=== PATIENT | female | born 1955 | race Caucasian/White ===

== ENCOUNTER 2023-10-13 06:51 | Day surgery (SDC) | payer MEDICARE, SELFPAY ==
[2023-10-09 14:07] VITALS: BMI 22.1
--- NOTE | 2023-10-09 14:48 | P.CONAN_ITS ---
Documented by User: Yanet Zavala NP 10/09/23 14:49 HPI - Anesthesia Eval Consult details Narrative: 68yo F for Colonoscopy PMFSH Past Medical History Medical History Migraines Nephrolithiasis OCD (obsessive compulsive disorder) Attention deficit disorder (ADD) Depression Eczema Surgical History Surgical History Hx of colonoscopy Hx of removal of cyst Hx of cataract extraction Social History Social History Patient Tobacco Use Status: Former Tobacco user Substance Use Frequency: Occasionally Are you DNR?: No Advance Directives: No Advance Directives Information Provided: No Nutrition Risks: No Nutritional Risk Meds Allergies Allergy/AdvReac Type Severity Reaction Status Date / Time animal dander [PET DANDER] Allergy Intermediate SNEEZING, Verified 10/13/23 07:11 SWELLING mold [MOLD] Allergy Intermediate SWELLING Verified 10/13/23 07:11 pollen extracts [POLLEN] Allergy Intermediate SWELLING Verified 10/13/23 07:11 sulfite [SULFITE] Allergy Intermediate HIVES Verified 10/13/23 07:11 Sulfa (Sulfonamide Allergy Unknown UNKNOWN Verified 10/13/23 07:11 Antibiotics) [SULFA (SULFONAMIDE ANTIBIOTICS)] DUST Allergy Intermediate SWELLING Uncoded 10/13/23 07:11 Home Medications ?Medication ?Instructions ?Recorded ?Confirmed ?Last Taken ?Type albuterol sulfate 90 mcg/actuation 1 inh inhalation QID PRN Shortness 10/09/23 10/09/23 Unknown History aerosol inhaler Of Breath Or Wheezing albuterol sulfate 90 mcg/actuation 1 inh inhalation QID PRN Shortness 10/09/23 10/09/23 10/13/23 History aerosol inhaler (Ventolin HFA) Of Breath Or Wheezing rlkxfus-kdcyqckumavdg-gbucbxds 250 2 tab PO Q4-6H PRN Headache 10/09/23 10/09/23 Unknown History mg-250 mg-65 mg tablet (Excedrin Migraine) bupropion HCl 150 mg tablet,12 hr 150 mg PO BID 10/09/23 10/09/23 Unknown History sustained-release cetirizine 10 mg tablet (Zyrtec) 10 mg PO DAILY 10/09/23 10/09/23 Unknown History fluvoxamine 100 mg tablet 100 mg PO BEDTIME 10/09/23 10/09/23 Unknown History levothyroxine 25 mcg tablet 25 mcg PO DAILY 10/09/23 10/09/23 10/13/23 History sumatriptan succinate 100 mg tablet 100 mg PO ONCE PRN Headache 10/09/23 10/09/23 Unknown History trazodone 150 mg tablet 150 mg PO BEDTIME 10/09/23 10/09/23 Unknown History triamcinolone acetonide 0.5 % 1 appl topical DAILY 10/09/23 10/09/23 Unknown History topical ointment Exam Height,Weight and Vital Signs: Height 5 ft 9 in Weight 68.039 kg Assessment and Plan Assessment Anesthesia Assessment: Chart Reviewed Documented by User: Radha Morris MD 10/13/23 07:49 [facility] Past Medical History Medical History Migraines Nephrolithiasis OCD (obsessive compulsive disorder) Attention deficit disorder (ADD) Depression Eczema Surgical History Surgical History Hx of colonoscopy Hx of removal of cyst Hx of cataract extraction History of Problems with Anesthesia: No Social History Social History Patient Tobacco Use Status: Former Tobacco user Substance Use Frequency: Occasionally Are you DNR?: No Advance Directives: No Advance Directives Information Provided: No Nutrition Risks: No Nutritional Risk Meds Allergies Allergy/AdvReac Type Severity Reaction Status Date / Time animal dander [PET DANDER] Allergy Intermediate SNEEZING, Verified 10/13/23 07:11 SWELLING mold [MOLD] Allergy Intermediate SWELLING Verified 10/13/23 07:11 pollen extracts [POLLEN] Allergy Intermediate SWELLING Verified 10/13/23 07:11 sulfite [SULFITE] Allergy Intermediate HIVES Verified 10/13/23 07:11 Sulfa (Sulfonamide Allergy Unknown UNKNOWN Verified 10/13/23 07:11 Antibiotics) [SULFA (SULFONAMIDE ANTIBIOTICS)] DUST Allergy Intermediate SWELLING Uncoded 10/13/23 07:11 Home Medications ?Medication ?Instructions ?Recorded ?Confirmed ?Last Taken ?Type albuterol sulfate 90 mcg/actuation 1 inh inhalation QID PRN Shortness 10/09/23 10/09/23 Unknown History aerosol inhaler Of Breath Or Wheezing albuterol sulfate 90 mcg/actuation 1 inh inhalation QID PRN Shortness 10/09/23 10/09/23 10/13/23 History aerosol inhaler (Ventolin HFA) Of Breath Or Wheezing pgzkwat-oiwgeouzoljwn-jmjlruti 250 2 tab PO Q4-6H PRN Headache 10/09/23 10/09/23 Unknown History mg-250 mg-65 mg tablet (Excedrin Migraine) bupropion HCl 150 mg tablet,12 hr 150 mg PO BID 10/09/23 10/09/23 Unknown History sustained-release cetirizine 10 mg tablet (Zyrtec) 10 mg PO DAILY 10/09/23 10/09/23 Unknown History fluvoxamine 100 mg tablet 100 mg PO BEDTIME 10/09/23 10/09/23 Unknown History levothyroxine 25 mcg tablet 25 mcg PO DAILY 10/09/23 10/09/23 10/13/23 History sumatriptan succinate 100 mg tablet 100 mg PO ONCE PRN Headache 10/09/23 10/09/23 Unknown History trazodone 150 mg tablet 150 mg PO BEDTIME 10/09/23 10/09/23 Unknown History triamcinolone acetonide 0.5 % 1 appl topical DAILY 10/09/23 10/09/23 Unknown History topical ointment Exam Airway Mallampati Class: II TM Dist: >3cm Neck ROM: Full Loose/Missing/Broken Teeth: No Heart: RRR Lungs: CTA Assessment and Plan Assessment Anesthesia Assessment: Anesthesia Plan Discussed Final Anesthetic Review History of Problems with Anesthesia: No NPO: Yes ASA Class: II Final Preanesthetic Review: Meds/Allgs Chart Reviewed, Consent Obtained/Reviewed and Anes Risks/Benef Reviewed Patient Risk: Low Procedure Risk: Low Anesthetic Plan Anesthetic Plan: MAC: Disposition: Standard PACU
[2023-10-13 07:08] VITALS: BMI 21.0
[2023-10-13] MEDS: Lactated Ringers 1,000 ML 100 ML IVCONT (07:14)
[2023-10-13 07:20] VITALS: BP 103/62; PULSE 81; RESP 18; TEMP 36.8; O2SAT 98
--- NOTE | 2023-10-13 08:08 | P.HPSUR_ITS ---
Pre-Procedural Eval Section A - 24 Hr Update-Section A only Date of Service: 10/13/23 Section B - Complete if H&P > 30 days Chief Complaint: Encounter for screening for malignant neoplasm of Details of Present Illness: see H&P no changes Relevant Family History (Specify if Yes): No Relevant Social History: None Present Medications: see Short Stay Collaborative assessment Medical History: No relevant PMH History of Previous Operations: No relevant previous surgery Allergies: Allergies Allergy/AdvReac Type Severity Reaction Status Date / Time animal dander [PET DANDER] Allergy Intermediate SNEEZING, Verified 10/13/23 07:11 SWELLING mold [MOLD] Allergy Intermediate SWELLING Verified 10/13/23 07:11 pollen extracts [POLLEN] Allergy Intermediate SWELLING Verified 10/13/23 07:11 sulfite [SULFITE] Allergy Intermediate HIVES Verified 10/13/23 07:11 Sulfa (Sulfonamide Allergy Unknown UNKNOWN Verified 10/13/23 07:11 Antibiotics) [SULFA (SULFONAMIDE ANTIBIOTICS)] DUST Allergy Intermediate SWELLING Uncoded 10/13/23 07:11 Review of Systems Sugical H&P ROS: Negative: Constitution, Cardiovascular, Respiratory, Neurological, Psychiatric, Hem-Onc, Allergic/Immunologic, Gastrointestinal, Genitourinary, Musculoskeletal, Integumentary, Endocrine and Eyes/Ears/Nose/Throat Exam Surgical H&P Exam: Normal: HEENT, Normal: Heart, Normal: Lungs, Normal: Extrem ities, Normal: Abdomen, Normal: Skin and Normal: Neurological Plan Diagnosis/Plan: Unchanged I have reviewed the history and physical and performed a pertinent physical examination on my patient. No changes have occurred unless specified. Time Spent With Patient Time: Total time managing care of this patient today ____ minutes.
[2023-10-13 08:47] VITALS: BP 91/49; PULSE 66; RESP 16; TEMP 36.1; O2SAT 99
[2023-10-13 09:02] VITALS: BP 110/59; PULSE 69; RESP 16; TEMP 36.1; O2SAT 96
--- NOTE | 2023-10-13 09:08 | OP_ITS ---
DATE OF SERVICE: 10/13/2023 SURGEON: Yasmany Ortega MD INDICATIONS: Colon cancer screening. PREOPERATIVE DIAGNOSIS: POSTOPERATIVE DIAGNOSIS: PROCEDURE PERFORMED: Colonoscopy to the terminal ileum with snare polypectomy. ESTIMATED BLOOD LOSS: COMPLICATIONS: ANESTHESIA: Monitored anesthesia care. ASSISTANTS: SPECIMENS: DESCRIPTION OF PROCEDURE: A history and physical was performed. The risks and benefits of the procedure were explained to the patient and informed consent was obtained. The patient was placed in the left lateral decubitus position. A digital rectal exam was performed and was found to be normal. The Olympus pediatric video colonoscope was introduced into the rectum and advanced to the cecum. The cecum was identified by transillumination, palpation, and identification of the ileocecal valve. Examination was performed and the scope was removed. She tolerated the procedure well and was returned to the recovery area in stable condition. FINDINGS: The terminal ileum was normal. The visualized colonic mucosa was normal. A total of 3 polyps were removed with a snare. These were located at the cecum, transverse colon, and 55 cm. The polyp at 55 measured approximately 15 mm and had a stalk. This was snared and recovered via suction and a single clip was placed across the stalk for hemostasis. There was no bleeding at the termination of the procedure. The other 2 polyps were less than 10 mm. Retroflexed examination showed internal hemorrhoids. IMPRESSION: Colon polyps. RECOMMENDATION: Follow up the biopsy results. MD SHANICE Andrade/SIMON / [id number]
== END 2023-10-13 09:49 | disposition home or self-care (01) ==
PROVIDERS: PCP Family Medicine; Visit Provider Internal Medicine Gastroenterology
PROC: 0DJD8ZZ Inspection of Lower Intestinal Tract, Via Natural or Artificial Opening Endoscopic (ICD-10-PCS; CPT 45378; principal; 2023-10-13 08:20)
DX: Z12.11 Encounter for screening for malignant neoplasm of colon (principal); D12.0 Benign neoplasm of cecum; D12.3 Benign neoplasm of transverse colon; D12.6 Benign neoplasm of colon, unspecified; K64.8 Other hemorrhoids; Z87.19 Personal history of other diseases of the digestive system
CPT/HCPCS: 45385; 88305; J2704

== ENCOUNTER 2025-03-31 06:02 | Emergency (ER) | payer MEDICARE, SELFPAY ==
--- OUTSIDE RECORDS SUMMARY | 2023-10-13 03:20 | XMS_ITS ---
Author Organization [facility] Address [address] [place] [address] Care Team Providers Care Color Adviser Name Role Phone DEACON SILVA Primary Care Provider Yasmany Samuels Jr Unavailable REASON FOR VISIT colon screening Encounters Encounter Location Date Provider Diagnosis [facility] [place] Outpatient [address], [place] [id number] 10/13/2023 Yasmany Ortega Jr Encounter for screening colonoscopy Z12.11 and Colon polyps K63.5 Assessments Encounter Date Diagnosis (ICD Code) Assessment Notes Treatment Notes Treatment Clinical Notes Section Notes 10/13/2023 Encounter for screening colonoscopy (ICD-10 - Z12.11) 10/13/2023 Colon polyps (ICD-10 - K63.5) Plan Of Treatment No Information Progress Notes * AKASH MONTELONGO MDOB: [birth year] (69 yo F)Acc No.[id number]:10/13/2023 COLON WITH MAC Patient: AKASH CANNON Provider: Phong Ortega MD :[id number] A ge:68 Y S ex:Female Date:10/13/2023 Address:[address] [place] [address] Pcp:DEACON SILVA Subjective: * Chief Complaints: * 1 . Colon screening. * Medical History: Objective: * Vitals: Assessment: * Assessment: 1. E ncounter for screening colonoscopy - Z12.11 (Primary) 2 . C olon polyps - K63.5 Plan: * Treatment: * Procedure Codes: 4 5385 LESION REMOVAL COLONOSCOPY, 0529F INTRVL 3+YRS PTS CLNSCP DOCD * * The named appointment provid er may or may not be the originator of this progress note, and it is not deemed complete until electronically signed by the appointment provider. Sign off status: Pending * Provider: Phong Ortega MD Date: 0 10/13/2023 Generated for Vera douglas/Rachael/Tannaitting on: 1 05/31/2024 06:50 AM EST
--- OUTSIDE RECORDS SUMMARY | 2025-03-28 09:00 | XMS_ITS | Encounter Summary ---
Author Organization [facility] Address [address] [place] [address] Phone Care Team Providers Care Senior Vice President & General Counsel Name Role Phone Dayton Bruce DO Unavailable Dayton Bruce DO Primary Care Provider [phone] Dayton Bruce DO Unavailable Reason for Visit * Consultation (Within 2 weeks) - New Request Specialty Diagnoses / Procedures Referred By Kristofer vega Referred To Contact Psychiatry Diagnoses Current moderate episode of major depressive disorder without prior episode Dayton Bruce DO [address] [facility] [address] [place] [address] Phone: tel: fax: [email or web address] [facility] [address] [place] [address] Phone: tel: Referral ID Status Reason Start Date Expiration Date V isits Requested Visits Authorized [id number] New Request 02/03/2025 02/03/2026 1 1 Encounter Details Date Type Department Care Team (Late st Contact Info) Description 03/28/2025 9:00 AM EST Telemedicine [facility] [address] [place] [address] Mary Zapata, PMHNP- [address] [facility] [facility], [address] [place] [address] [email or web address] Mood disorder (Primary Dx); Obsessive-compulsive disorder, unspecified type; Grief reaction; Depression, unspecified depression type; Insomnia, unspecified type Social History Tobacco Use Types Packs/Day Years Used Date Smoking Tobacco: Never Smokeless Tobacco: Never Alcohol Use Standard Drinks/Week Comments Never 0 (1 standard drink = 0.6 oz pur e alcohol) Child or Family Care Answer Date Record ed Do you have problems with on e of the following making it difficult for you to work, study, or receive health care? No 01/27/2024 Education Answer Date Recorded Are you interested in more education? Not on hola e 09/18/2022 Are you concerned about learning? Not on file 09/18/2022 No 09/18/2022 No 09/18/2022 Food Answer Date Recorded Within the past 6 months we worried whether our food would run out before we got money to buy more. Never True 01/27/2024 Within the past 6 months the food we bought just didn't last and we didn't have enough money to get more. Never True Residential Stability Answer Date Recor ded What is your housing situation today? I have caroline sing 01/27/2024 How many times have you move d in the past 12 months? Zero (I did not move) 01/27/2024 Paying for Meds Answer Date Recorded Do you have trouble paying for medicines? No 01/27/2024 Paying Utility Bills Answer Date Record ed Do you have trouble paying your heating or elect ricity bill? No 01/27/2024 Transportation Answer Date Recorded Has the lack of transportati on kept you from medical appointments or from getting medications? No 01/27/2024 Digital Access Answer Date Recorded No 01/27/2024 Yes 01/27/2024 Do you have reliable internet access at home? Ye s 01/27/2024 Do you have a device (e.g., phone, tablet, computer) with a working camera? Yes 01/27/2024 Intimate Partner Violence Answer Date R ecorded Are you denied basic needs s uch as food, clothing, or medical care? No 03/28/2025 In the past 12 months have y ou been in a relationship with a person who hurts, threatens, or tries to control you? No 03/28/2025 Are you denied basic needs s uch as food, clothing, or medical care? No 03/28/2025 In the past 12 months have y ou been in a relationship with a person who hurts, threatens, or tries to control you? 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 Not on file Not on file Not on file documented as of this encounter Progress Notes * Mary Zapata, PMHNP-BC - 03/28/2025 9:00 AM EST Consultation Identifying information Petra is a 69 year old female referred by their PCP for psychiatric consultation. The patient was seen via telemedicine by video. The patient is aware that at the conclusion of the consultation their PCP will monitor and manage psychotropic medications. Reason for Referral The patient was referred due to worsening depression, recent severe grief, and a complex medicationhistory. PCP notes from 02/03/25 indicated the patient was struggling with depression, missing her recently sister, and dealing with financial debt. History of present illness The patient reports feeling depressed daily (PHQ-9=14), wishing she were better, and exhibiting lowenergy, hypersomnia (sleeping too much, staying in bed unless required for work), and feelings of failure for not forcing herself to get up. This worsening depression followed one week, about a monthago, when she experienced an abrupt shift, reporting feeling very energetic, staying up all night, engaging in obsessive cleaning, and experiencing racing thoughts and a sense of hope, which she self-treated with Trazodone to ensure sleep. She adamantly denies suicidal, homicidal, or self-harm ideation. She is currently struggling with acute grief following the of her close middle sister (September 2024) and ongoing estrangement from the rest of her family, which are major current stressors. Past Psychiatric History Petra has an extensive psychiatric history, beginning in adolescence, marked by both Depression and Obsessive-Compulsive Disorder (OCD). Her OCD symptoms, which began in her early teens, initially involved compulsive counting (by twos to twenty, interfering with reading and academics) and later included severe intrusive, unwanted thoughts (harm-related and inappropriate sexual content). She received behavioral therapy in her thirties, which she found helpful, and her OCD is described as primarily cognitive, with persistent unwanted thoughts and mental rituals, though the severity has fluctuated over time and remains chronic. She has a long history of recurrent mood swings dating back to her teenage years, with alternating periods of elevated mood/energy and depression. She describes a pronounced elevated episode following her mother's in 2011 (lasting about a year), characterized by elevated mood, increased energy, decreased need for sleep (staying up for days at a time/over 48 hours), increased talkativeness, impulsivity, irritability, risk-taking behaviors, grandiosity (feeling she had risen to a higher plain ), racing thoughts, and inflated self-esteem. This episode resulted in an outburst and her beingfired from work. A similar, less intense period occurred around age 48 (increased energy, socialization, confidence, productivity). These highs have become less frequent and the depressive lows more prominent as she has aged. This history led one past psychiatrist to label her presentation as being on the bipolar spectrum. She has a history of multiple past medication trials for depression and OCD, with generally minimalor partial benefit. Medications tried include Prozac (ineffective), Zoloft (discontinued due to fatigue), Wellbutrin (partial benefit), Effexor (ineffective, though it may have taken the edge off ), Cymbalta (ineffective), amitriptyline (minimal benefit), and anafranil (helpful for OCD). She expresses frustration with previous care due to a lack of significant improvement on multiple prescribed medications. The patient reports significant emotional trauma related to her mother's severe mental illness, which included mood swings (depressive lows and manic highs with excessive spending and extreme talking/yelling at unseen individuals), emotional dependence, being encouraged to skip school, and feeling forced into a go- between role for her parents. She also reports distress from unhealthy and impulsive relationships in adolescence and young adulthood (affair with a teacher, fixation on an older man), contributing to periods of depression and low self-esteem. She reports a long history of Major Depression, Insomnia, and Chronic Fatigue. She denies any history of hospitalization, suicide attempts, self-harm behaviors, psychosis, or eating disorders. Current psychotropic medications - Bupropion SR 150 mg BID, Trazodone 150 mg at bedtime, and Fluvoxamine 150 mg at bedtime (increased 4 months ago). She reports her meds have worked minimally. Family Psychiatric history Family history is highly significant: Mother had depression and severe mood swings (gavin with excessive spending) and experienced hallucinations on Paxil. A maternal uncle and his son both by suicide. An older sister has a history of anorexia and depression. Her father and other sister have ahistory of alcohol abuse. Substance history Petra reports a history of Alcohol Use Disorder, starting in her 30s. She achieved sobriety through AA, relapsed briefly around 2011, and became sober again after intensive outpatient treatment (IOP), reporting abstinence since about 2011. She reports intermittent marijuana use (less than once a week) and drinks one cup of coffee in the morning. She denies use of tobacco or illicit drugs. Patient Active Problem List Diagnosis Allergic rhinitis Depression Eczema Acquired hypothyroidism Mild intermittent asthma, uncomplicated Malaise and fatigue Overweight Allergic reaction to food Special screening for malignant neoplasm of colon Other fatigue Routine medical exam Sleep disturbance Diarrhea Osteopenia Advice given about COVID-19 virus infection Laboratory examination ordered as part of a routine general medical examination Migraine without aura and without status migrainosus, not intractable Current episode of major depressive disorder without prior episode Need for hepatitis C screening test Angioedema Screening for condition Need for prophylactic vaccination and inoculation against influenza Accidental fall Acute left-sided thoracic back pain Hives Close exposure to COVID-19 virus Need for prophylactic vaccination against Streptococcus pneumoniae (pneumococcus) Medicare annual wellness visit, subsequent Current moderate episode of major depressive disorder without prior episode Moderate persistent asthma with exacerbation Cervical radiculopathy Age-related cataract of both eyes Preop examination Encounter for routine laboratory testing Chronic pain of both ankles Psychophysiological insomnia Encounter for completion of form with patient Seasonal allergies Vitamin D deficiency, unspecified Social history Petra is a single, semi-retired woman living alone in [place], [place]. She holds a Bachelor's degree in [employer]. She currently works about 18 hours a week, with half of her work done virtually from home, for a [employer] organization. 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 I am tired of it and I am going to retire next year. She denies any legal history. Petra has recently experienced a significant loss, with her middle sister passing away on October 21, 2024; they had a very close relationship. She has one older sister, but they are estranged and not close. Petra describes her niece, who lives in [place], as probably the most important person in my life. She notes that while they don't really keep in contact, she knows her niece is there if she needs her. Petra has no children. Her current support system includes her neighbors, whom she refers to as her best friends, Yash and Ila, and another good local friend. She also maintains contact with a best friend who moved to [place]. Regarding mental health, she states, I was in therapy for 10 years and I don't think I need therapy. I had so many years of that and basically I think I need to review my meds, noting she has been on medication since her early 30's. Mental status examination Appearance: Normal Speech: clear, normally paced, and normal volume Cognition: intact with good understanding of issues discussed. Mood and affect: Mood very depressed , affect full and stable and congruent with content of speech No SI/HI No psychotic thought content, thought form, or hallucinations. Insight and judgment Intact Current Outpatient Medications Medication Sig Dispense Refill Last Dispense albuterol 2.5 mg /3 mL (0.083 %) nebulizer solution Take 3 mL (2.5 mg total) by nebulization every 6 (six) hours as needed. 30 mL 3 Unknown (outside pharmacy) albuterol 90 mcg/actuation inhaler Inhale 2 puffs into the lungs every 6 (six) hours as needed for wheezing. 18 g 3 Unknown (outside pharmacy) apremilast (OTEZLA) 30 mg tablet Take 60 mg by mouth 2 (two) times a day. Unknown (patient-reported) buPROPion (WELLBUTRIN SR) 150 MG SR 12 hr tablet Take 1 tablet (150 mg total) by mouth 2 (two) times a day. 180 tablet 3 Unknown (outside pharmacy) clobetasol (TEMOVATE) 0.05 % ointment APPLY TO PSORIASIS ON FEET TWICE A DAY Unknown (patient-reported) EPINEPHrine (EPIPEN 2-ALEXA) 0.3 mg/0.3 mL auto-injector Inject 0.3 mL (0.3 mg total) into the muscleas needed for anaphylaxis. 2 each 1 Unknown (outside pharmacy) fluticasone propion-salmeteroL (ADVAIR DISKUS) 500-50 mcg/dose DISKUS Inhale 1 puff into the lungs 2 (two) times a day. 1 each 3 Unknown (outside pharmacy) fluvoxaMINE (LUVOX) 100 MG tablet Take 1.5 tablets (150 mg total) by mouth nightly at bedtime. 45 tablet 5 Unknown (outside pharmacy) levothyroxine (SYNTHROID,LEVOTHROID) 25 MCG tablet Take 1 tablet (25 mcg total) by mouth every morning. 90 tablet 3 Unknown (outside pharmacy) loratadine (CLARITIN) 10 mg tablet Take 1 tablet by mouth every morning. Unknown (patient-reported) predniSONE (DELTASONE) 20 MG tablet 2 tabs daily x 3 days, 1.5 tabs daily x 3 days, 1 tab daily x 3days, 0.5 tab daily x 3 days 15 tablet 0 Unknown (outside pharmacy) SUMAtriptan (IMITREX) 100 MG tablet Take 1 tablet (100 mg total) by mouth once as needed for migraine. Can repeat dose in 2 hours if needed. Do not exceed 2 doses in a 24 hour period. Max dose 200mg/day 10 tablet 2 Unknown (outside pharmacy) traZODone (DESYREL) 150 MG tablet TAKE 1 TABLET BY MOUTH NIGHTLY AT BEDTIME. 90 tablet 3 Unknown (outside pharmacy) triamcinolone acetonide 0.05 % Oint Unknown (patient-reported) No current facility-administered medications for this visit. Allergies - Sesame, Sulfites, and Bactrim [sulfamethoxazole-trimethoprim] Assessment Petra is a 69-year-old woman with a complex psychiatric history presenting with a current major depressive episode (PHQ-9=14) and recent brief, self-limited elevated mood/energy consistent with hypomania. Her long-standing history includes multiple sustained periods of elevated mood, energy, grandiosity, and impulsivity, sometimes with functional impairment, strongly suggesting an underlying Bipolar Disorder Type I or II. This diagnosis is supported by the highly significant family history of mood swings and suicide. Her severe, chronic Obsessive-Compulsive Disorder (OCD), characterized by intrusive thoughts and mental counting rituals, is a primary concern. She has a history of Alcohol Use Disorder in remission and is currently experiencing acute grief and financial stress. Her complaints of hypersomnia, chronic fatigue, and current medication regimen (Bupropion SR and high-dose Fluvoxamine, both increased recently) require careful evaluation, as antidepressants used without a mood s tabilizer in Bipolar Disorder can potentially induce gavin or rapid cycling, and may be contributing to mixed features. The complaint of hypersomnia warrants continued consideration of a sleep disorder. Plan Bipolar spectrum mood disorder with comorbid obsessive-compulsive disorder Bipolar spectrum mood disorder with episodes of hypomania and depression. Comorbid OCD with intrusive thoughts and compulsive counting. Family history of mood disorder. Previous treatment with SSRIs and Wellbutrin was ineffective. Current treatment with fluvoxamine for OCD. Recent hypomanic episodelasted about a week with increased energy and reduced sleep. Current depressive episode with low energy and lack of interest in activities. Potential benefit from mood stabilizing agents discussed. - Scheduled follow-up appointment to discuss medication adjustments and treatment plan. - Will consider mood stabilizing agents for bipolar spectrum disorder. - Continue fluvoxamine for OCD. - Encouraged obtaining a list of previous medications and their efficacy. Major depressive episode with grief reaction following loss of sister Major depressive episode exacerbated by grief following the loss of her sister in September. Symptoms include low energy, lack of interest in activities, and feelings of failure. Protective factors includeher niece and supportive friends. No suicidal ideation or self-harm history. Short-term therapy maybe beneficial for grief processing. - Will consider short-term therapy for grief processing. Insomnia associated with mood disorder Insomnia associated with mood disorder, characterized by excessive daytime sleep and difficulty maintaining a regular sleep schedule. Current use of trazodone 50 mg at night. Recent hypomanic episodeinvolved reduced sleep but increased energy. - Continue trazodone 50 mg at night. - Monitor sleep patterns and adjust treatment as needed. Referral for Sleep Study: Due to chronic fatigue and hypersomnia, formal evaluation for Sleep Apneais warranted and should be pursued via the PCP. -Patient was given the opportunity to ventilate and receive support about psychosocial stressors. -We agreed to follow up on March 30 2025 at 130 pm to complete initial evaluation -Patient is aware that should they have any questions or concerns prior to their next scheduled appointment that they can contact this office documented in this encounter Plan of Treatment Upcoming Encounters Date Type Department Care Team (Late st Contact Info) Description 11/28/2024 Procedure Pass [address] [address] 04/26/2025 12:00 PM EST Telemedicine [facility] [address] [place] [address] Mary Zapata, PMHNP- [address], [address] [place] [address] [email or web address] 07/13/2025 3:30 PM EST Appointment [address] [address] Dayton Bruce DO [address] [facility] [address] [place] [address] 07/28/2025 1:30 PM EST Office Visit [facility] [address] [place] [address] Dayton Bruce DO [address] [facility] [address] [place] [address] [email or web address] Scheduled Referrals Name Type Priority Associated Diagnoses Order Schedule Ambulatory referral to [facility] Outpatient Referral Routine Current moderate episode of major depressive disorder without prior episode Ordered: 02/03/2025 documented as of this encounter Visit Diagnoses Diagnosis Mood disorder- Primary Unspecified episodic mood disorder Obsessive-compulsive disorder, unspecified type Grief reaction Adjustment disorder with depressed mood Depression, unspecified depression type Insomnia, unspecified type documented in this encounter Additional Health Concerns Assessment Noted Time PHQ-9 Depression Total Score: 14 025 10:45 AM EST PHQ-2 Depression Total Score: 5 03/28/20 25 10:45 AM EST documented as of this encounter Care Teams Senior Vice President & General Counsel Relationship Specialty Start Date End Date Dayton Bruce DO [address] [facility] [facility] [address] [place] [address] [email or web address] PCP - General 05/28/17 Dayton Bruce DO [address] [facility] [address] [place] [address] [email or web address] Historical LMR Provider 03/11/17 Dayton Bruce DO [address] [facility] [address] [place] [address] [email or web address] Insurance Assigned Provider 08/29/23 documented as of this encounter Additional Source Comments The information contained in this document represents components of the legal health record. It is not the complete legal health record.[facility]
--- OUTSIDE RECORDS SUMMARY | 2025-03-30 13:30 | XMS_ITS | Encounter Summary ---
Author Organization [facility] Address [address] [place] [address] Phone Care Team Providers Care Space Operations Name Role Phone Dayton Bruce DO Unavailable Dayton Bruce Janice DO Primary Care Provider [phone] Dayton Bruce Janice DO Unavailable Encounter Details Date Type Department Care Team (Late st Contact Info) Description 03/30/2025 1:30 PM EST Telemedicine [facility] [address] [place] [address] Mary Zapata, [facility]- [address] [facility], [address] [place] [address] [email or web address] Bipolar I disorder in remission (Primary Dx); Grief reaction Social History Tobacco Use Types Packs/Day Years [...] your housing situation today? 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 Not on file Not on file Not on file documented as of this encounter Plan of Treatment Upcoming Encounters Date Type Department Care Team (Late st Contact Info) Description 11/28/2024 Procedure Pass [facility], [address] [address] 04/26/2025 12:00 PM EST Telemedicine [facility] [address] [place] [address] Mary Zapata, PMHNP-BC [address] [facility], [address] [place] [address] 07/13/2025 3:30 PM EST Appointment [facility], [facility] [address] [place] [address] Dayton Bruce, [address] [facility] [address] [place] [address] 07/28/2025 1:30 PM EST Office Visit [facility] [address] [place] [address] Dayton Bruce DO [address] [address] documented as of this encounter Visit Diagnoses Diagnosis Bipolar I disorder in remission- Primary Grief reaction Adjustment disorder with depressed mood documented in this encounter Additional Health Concerns Assessment Noted Time PHQ-9 Depression Total Score: 14 025 1:55 PM EST PHQ-2 Depression Total Score: 5 03/30/20 25 1:55 PM EST documented as of this encounter Care Teams Space Operations Relationship Specialty Start Date End Date Dayton Bruce DO [address] [address] PCP - General 05/28/17 Dayton Bruce DO [address] [address] Historical LMR Provider 03/11/17 Dayton Bruce DO [address] [address] [email or web address] Insurance Assigned Provider 08/29/23 documented as of this encounter Additional Source Comments The information contained in this document represents components of the legal health record. It is not the complete legal health record.[facility]
--- NOTE | ~2025-03-31 | CT_ITS ---
EXAMINATION: CT HEAD WITHOUT CONTRAST CLINICAL INFORMATION: Headache x3 weeks R/O mass effect, stroke, bleed COMPARISON: None available. TECHNIQUE: Contiguous axial imaging was performed from the skull base to vertex without intravenous administration of contrast. This CT examination was performed using dose optimization techniques as appropriate, variously including the following: *Automated exposure control *Adjustment of mA and/or kV according to patient size (this includes techniques or standardized protocols for targeted exams where dose is matched to indication/reason for exam; i.e. extremities or head) *Use of iterative reconstruction technique FINDINGS: There is no acute ischemic change. There is no intracranial hemorrhage. There is no mass-effect or midline shift. There is mild generalized atrophy. Basal cisterns and ventricles are within normal limits for age/cerebral volume. Orbits are symmetrical and unremarkable. There is a lesion in the superior medial right maxillary sinus measuring 17 x 11 x 19 mm (CC by transverse by AP). It has a thin peripheral shell calcification. There is no adjacent erosion or maxillary bony wall thickening. It does not occlude the infundibulum. There are no bony abnormalities. CT/CT head/brain wo IV con IMPRESSION: No acute intracranial abnormality. There is a circumscribed lesion with peripheral shell of calcification in the superior medial right maxillary sinus that could represent a pseudocyst, retention cyst, pseudocyst, or post-surgical ciliated cyst. Electronically signed by: Miguel Almodovar MD 03/31/2025 09:57 AM EST
[2025-03-31 06:12] VITALS: BP 141/78; PULSE 80; RESP 20; TEMP 36.7; O2SAT 98; BMI 29.3
[2025-03-31 06:18] VITALS: BP 141/78; PULSE 80; RESP 20; TEMP 36.7; O2SAT 98
--- OUTSIDE RECORDS SUMMARY | 2025-03-31 06:50 | XMS_ITS | Encounter Summary ---
Author Organization [facility] Address [address] [facility] [address] [place] [address] Phone Care Team Providers Care Surg Rn Name Role Phone Dayton Bruce DO Unavailable Dayton Bruce DO Primary Care Provider [phone] Dayton Bruce DO Unavailable Encounter Details Date Type Department Care Team (Late Contact Info) Description 11/10/2022 Procedure Pass [facility], [facility] 30 [place] [address] Social History Tobacco Use Types Packs/Day Years Used Date Smoking Tobacco: Never Smokeless Tobacco: Never Alcohol Use Standard Drinks/Week Comments Never 0 (1 standard drink = 0.6 oz pur e alcohol) Education Answer Date Recorded Are you interested in more education? Not on hola e 09/18/2022 Are you concerned about learning? Not on file 09/18/2022 No 09/18/2022 No 09/18/2022 Digital Access Answer Date Recorded No 10/14/2022 No 10/14/2022 Reliable internet access at home? Not on file 10/14/2022 Device with a working camera? 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 file Not on file Not on file documented as of this encounter Plan of Treatment Upcoming Encounters Date Type Department Care Team (Late Contact Info) Description 11/28/2024 Procedure Pass [facility] 30 [place] [address] 04/26/2025 12:00 PM EST Telemedicine [facility] 22 [place] [address] Mary Zapata, PMHNP-BC [address] [facility], [address] [place] [address] 07/13/2025 3:30 PM EST Appointment [address] [address] Dayton Bruce DO [address] [address] 07/28/2025 1:30 PM EST Office Visit [facility] 234 [place] [address] Dayton Bruce DO [address] [address] documented as of this encounter Visit Diagnoses Not on filedocumented in this encounter Additional Health Concerns Assessment Noted Time PHQ-9 Depression Total Score: 8 07/25/19 22 11:30 AM EST PHQ-2 Depression Total Score: 2 11/11/19 23 1:58 PM EDT documented as of this encounter Care Teams Surg Rn Relationship Specialty Start Date End Date Dayton Bruce DO 234 [facility] 7 [place] [address] PCP - General 05/28/17 Dayton Bruce DO [address] [place] [address] 7 [place] [address] Historical LMR Provider 03/11/17 Dayton Bruce DO [address] [place] [address], [address] [place] [address] [email or web address] Insurance Assigned Provider 08/29/23 documented as of this encounter Additional Source Comments The information contained in this document represents components of the legal health record. It is not the complete legal health record.[facility]
--- OUTSIDE RECORDS SUMMARY | 2025-03-31 06:50 | XMS_ITS | Encounter Summary ---
Author Organization [facility] Address [address] [place] [address] Phone Care Team Providers Care Pharmacy Graduate Intern Name Role Phone Lilian Pina DIRECTOR OF INFECTION CONTROL Unavailable [phone] SahDayton reid DO Unavailable Ernestine Beasley NP Unavailable [phone] Emily Narayanan MD Unavailable Caron Norman MD Unavailable SahDayton reid DO Primary Care Provider [phone] Dayton Bruce DO Unavailable Encounter Details Date Type Department Care Team (Late st Contact Info) Description 07/21/2019 Ancillary Orders [facility] 234 [place] [address] Dayton Bruce DO 234 [facility] 7 [place] [address] 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 30 [place] [address] 04/26/2025 12:00 PM EST Telemedicine [facility] 22 [place] [address] Mary Zapata, PMHNP-BC 22 [facility], [address] [place] [address] 07/13/2025 3:30 PM EST Appointment [address] [address] Dayton Bruce, DO 234 [facility], [address] [place] [address] 07/28/2025 1:30 PM EST Office Visit [address] [address] Dayton Bruce, DO 234 [facility], [address] [place] [address] [email or web address] documented as of this encounter Results * BI MAMMOGRAM SCREENING WITH TOMOSYNTHESIS WITH CAD (BILATERAL) (03/26/2020 1:09 PM EST) Anatomical Region Laterality Modality Breast Left, Breast Right, Breast Bilateral Bila teral Mammography 03/26/2020 1:09 PM EST Impressions 03/26/2020 1:22 PM EST No mammographic signs of malignancy. Annual screening is recommended. BI-RADS CATEGORY 1 - NEGATIVE DENSITY: The breast tissue is almost entirely fatty Narrative 03/26/2020 1:22 PM EST Bilateral mammography is performed in conjunction with computed aided detection. 3-D tomography along with 2-D C view imaging was also performed. Comparison made to previous dated as far back as 08/15/2013 and as recent as 11/30/2017. No suspicious masses, areas of architectural distortion or suspicious microcalcifications. Dayton Camacho Josefranklin DO IMG MG EXAMS Final Result documented in this encounter Visit Diagnoses Diagnosis Breast screening Breast screening, unspecified Breast screening Breast screening, unspecified documented in this encounter Additional Health Concerns Infection Onset Date Last Indicated Resolved Time CoV-Exposed Comment:Recent close contact documented in the COVID-19 PCR/PRO order 06/06/2021 06/07/2021 06/17/2021 1:[address] documented as of this encounter Care Teams Pharmacy Graduate Intern Relationship Specialty Start Date End Date Dayton Bruce DO [address] [place] [address] 7 [place] [address] PCP - General 05/28/17 Lilian Pina NP 1 [place] [address] Historical LMR Provider 03/11/17 2 Dayton Bruce DO [address] [place] [address] 7 [place] [address] [email or web address] Historical LMR Provider 03/11/17 Ernestine Beasley NP [address] [place] [address] Historical LMR Provider 03/11/17 2 Emily Narayanan MD [address] [place] [address] Historical LMR Provider 03/11/17 06/01/21 Caron Norman MD [address] [place] [address] 7 [place] [address] Historical LMR Provider 03/11/17 06/01/21 Dayton Bruce DO [address] [place] [address], [address] [place] [address] [email or web address] Insurance Assigned Provider 08/29/23 documented as of this encounter Additional Source Comments The information contained in this document represents components of the legal health record. It is not the complete legal health record.[facility]
--- OUTSIDE RECORDS SUMMARY | 2025-03-31 06:50 | XMS_ITS | Encounter Summary ---
Author Organization [facility] Address [address] [facility] [address] [place] [address] Phone Care Team Providers Care Medical Insurance Coder Name Role Phone Lilian Pina ORDER TAKERS SUPERVISOR Unavailable SahdDayton DO Unavailable Ernestine Beasley NP Unavailable Emily Narayanan MD Unavailable Caron Norman MD Unavailable [phone] SahDayton reid DO Primary Care Provider [phone] SahDayton reid DO Unavailable SahDayton reid DO Unavailable Encounter Details Date Type Department Care Team (Late st Contact Info) Description 10/22/2017 Ancillary Orders [facility] 234 [place] [address] Dayton Bruce DO 234 [facility] [address] [place] [address] [email or web address] Breast screening Social History Tobacco Use Types Packs/Day Years Used Date Smoking Tobacco: Never Smokeless Tobacco: Never Comments Unknown Sex and Gender Information Value Date Recorded Sex Assigned at Not on file Legal Sex Female 7:02 PM EST Gender Identity Not on file Sexual Orientation Not on file documented as of this encounter Plan of Treatment Upcoming Encounters Date Type Department Care Team (Late st Contact Info) Description 11/28/2024 Procedure Pass [facility] 30 [place] [address] 04/26/2025 12:00 PM EST Telemedicine [facility] 22 [place] [address] Benny Mary Whitehead, PMHNP-BC [address] [facility], [address] [place] [address] 07/13/2025 3:30 PM EST Appointment [facility] 30 [place] [address] Dayton Bruce, DO 234 [facility], [address] [place] [address] 07/28/2025 1:30 PM EST Office Visit [address] [address] Dayton Bruce, DO 234 [facility] 7 [place] [address] documented as of this encounter Results * BI MAMMOGRAM SCREENING WITH TOMOSYNTHESIS WITH CAD (BILATERAL) (11/30/2017 12:53 PM EDT) Anatomical Region Laterality Modality Breast Left, Breast Right, Breast Bilateral Bila teral Mammography 11/30/2017 1:00 PM EDT Impressions 11/30/2017 1:06 PM EDT Stable appearance relative to prior imaging. No findings suggestive of malignancy are seen. BI-RADS CATEGORY: 1 - Negative. DENSITY: The breast tissue is almost entirely fat. POS - [id number] Narrative 11/30/2017 1:06 PM EDT Full-field digital mammography is obtained with computer-aided detection. Comparison with prior imaging from08/19/2016 is made with older imaging dating back as far as01/02/2010 also reviewed. There is fatty fibroglandular density evident in the breasts. In addition to 2-D C view imaging, tomosynthesis images are obtained in two projections of each breast. No dominant soft tissue mass of concern, suspicious cluster of calcifications, significant interval skin changes, or architectural distortion is identified. Procedure Note Otf Caro MD - 11/30/2017 Full-field digital mammography is obtained with computer-aided detection.Comparison with prior imaging from08/19/2016 is made with older imagingdating back as far as01/02/2010 also reviewed. There is fatty fibroglandular density evident in the breasts. In additionto 2-D C view imaging, tomosynthesis images are obtained in twoprojections of each breast. No dominant soft tissue mass of concern, suspicious cluster ofcalcifications, significant interval skin changes, or architecturaldistortion is identified. IMPRESSION: Stable appearance relative to prior imaging. No findings suggestive ofmalignancy are seen. BI-RADS CATEGORY: 1 - Negative. DENSITY: The breast tissue is almost entirely fat. POS - [id number] Dayton Bruce DO IMG MG EXAMS Final Result documented in this encounter Visit Diagnoses Diagnosis Breast screening Breast screening, unspecified Breast screening Breast screening, unspecified documented in this encounter Additional Health Concerns Infection Onset Date Last Indicated Resolved Time CoV-Exposed Comment:Recent close contact documented in the COVID-19 PCR/PRO order 06/06/2021 06/07/2021 06/17/2021 1:[address] documented as of this encounter Care Teams Medical Insurance Coder Relationship Specialty Start Date End Date Dayton Bruce DO [address] [place] [address], [address] [place] [address] PCP - General 05/28/17 Lilian Pina NP [address] [place] [address] Historical LMR Provider 03/11/17 2 Dayton Bruce DO [address] [place] [address] 7 [place] [address] [email or web address] Historical LMR Provider 03/11/17 Ernestine Beasley NP 29 [place] [address] Historical LMR Provider 03/11/17 2 Emily Narayanan MD [address] [address] [email or web address] Historical LMR Provider 03/11/17 06/01/21 Caron Norman MD [address] [place] [address] 7 [place] [address] [email or web address] Historical LMR Provider 03/11/17 06/01/21 Dayton Bruce DO [address] [place] [address] 7 [place] [address] [email or web address] Insurance Assigned Provider 07/18/1704/25 Dayton Bruce DO [address] [place] [address] [place] [address] Insurance Assigned Provider 08/29/23 documented as of this encounter Additional Source Comments The information contained in this document represents components of the legal health record. It is not the complete legal health record.[facility]
--- OUTSIDE RECORDS SUMMARY | 2025-03-31 06:50 | XMS_ITS | Encounter Summary ---
Author Organization [facility] Address [address] [facility] [address] [place] [address] Phone Care Team Providers Care Switchboard Operator Helper Name Role Phone Lilian Pina CARE MANAGER Unavailable SahDayton reid DO Unavailable Ernestine Beasley NP Unavailable Emily Narayanan MD Unavailable Caron Norman MD Unavailable SahDayton reid DO Primary Care Provider Dayton Bruce DO Unavailable Encounter Details Date Type Department Care Team (Late st Contact Info) Description 02/25/[address] [address] Social History Tobacco Use Types Packs/Day Years Used Date Smoking Tobacco: Never Smokeless Tobacco: Never Comments No Sex and Gender Information Value Date Recorded Sex Assigned at Not on file Legal Sex Female 7:02 PM EST Gender Identity Not on file Sexual Orientation Not on file 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 Not on file Not on file documented as of this encounter Plan of Treatment Upcoming Encounters Date Type Department Care Team (Late Contact Info) Description 11/28/[address] [address] 04/26/2025 12:00 PM EST Telemedicine [facility] [address] [place] [address] Mary Zapata, PMHNP- 22 [facility], [address] [place] [address] 07/13/2025 3:30 PM EST Appointment [facility], [facility] 30 [place] [address] Dayton Bruce DO [address] [address] 07/28/2025 1:30 PM EST Office Visit [facility] 234 [place] [address] Dayton Bruce DO [address] [address] documented as of this encounter Visit Diagnoses Not on filedocumented in this encounter Additional Health Concerns Infection Onset Date Last Indicated Resolved Time CoV-Exposed Comment:Recent close contact documented in the COVID-19 PCR/PRO order 06/06/2021 06/07/2021 06/17/2021 1:[address] documented as of this encounter Care Teams Switchboard Operator Helper Relationship Specialty Start Date End Date Dayton Bruce DO [address] [place] [address] PCP - General 05/28/17 Lilian Pina NP 1 [facility] [place] [address] Historical LMR Provider 03/11/17 1/ 2 Dayton Bruce DO [address] [place] [address] Historical LMR Provider 03/11/17 Ernestine Beasley NP [address] [place] [address] Historical LMR Provider 03/11/17 2 Emily Narayanan MD [address] [place] [address] Historical LMR Provider 03/11/17 06/01/21 Caron Norman MD [address] [place] [address] 7 [place] [address] [email or web address] Historical LMR Provider 03/11/17 06/01/21 Dayton Bruce DO [address] [place] [address] 7 [place] [address] [email or web address] Insurance Assigned Provider 08/29/23 documented as of this encounter Additional Source Comments The information contained in this document represents components of the legal health record. It is not the complete legal health record.[facility]
--- OUTSIDE RECORDS SUMMARY | 2025-03-31 06:50 | XMS_ITS | Encounter Summary ---
Author Organization [facility] Address [address] [facility] [address] [place] [address] Phone Care Team Providers Care Business Solutions Analyst Name Role Phone Dayton Bruce DO Unavailable Dayton Bruce Janice DO Primary Care Provider [phone] Dayton Bruce Janice DO Unavailable Reason for Visit * Reason Onset Date Comments Appointment 03/22/2025 Encounter Details Date Type Department Care Team (Late st Contact Info) Description 03/22/2025 Telephone [facility] 22 [place] [address] Mary Zapata, [facility] 22 [facility], [address] [place] [address] [email or web address] Appointment Social History Tobacco Use Types Packs/Day Years [...] Intimate Partner Violence Answer Date R ecorded Denied Basic Needs Not on file 02/01/2025 In the past 12 months have y ou been in a relationship with a person who hurts, threatens, or tries to control you? No 02/01/2025 Worried food would run out Not on file 02/01 In the past 12 months have y ou been in a relationship with a person who hurts, threatens, or tries to control you? 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 States that she has an appt with Mary in [place], but is considering scheduling with a md. Requesting call back for cesar. [facility] Call Center CSS Agent (Please do not reply to this user, as this inbox is not monitored. Thank you.) Thank you. documented in this encounter Plan of Treatment Upcoming Encounters Date Type Department Care Team (Late st Contact Info) Description 11/28/2024 Procedure Pass [address] [address] 04/26/2025 12:00 PM EST Telemedicine [facility] 22 [place] [address] Mary Zapata, HNP- [address] [address] 07/13/2025 3:30 PM EST Appointment [address] [address] Dayton Bruce DO [address] [address] 07/28/2025 1:30 PM EST Office Visit [facility] [address] [place] [address] Dayton Bruce DO [address] [place] [address] documented as of this encounter Visit Diagnoses Not on filedocumented in this encounter Additional Health Concerns Assessment Noted Time PHQ-9 Depression Total Score: 8 02/02/20 4:41 PM EDT PHQ-2 Depression Total Score: 3 02/02/20 4:41 PM EDT documented as of this encounter Care Teams Business Solutions Analyst Relationship Specialty Start Date End Date Dayton Bruce DO [address] [address] [email or web address] PCP - General 05/28/17 Dayton Bruce DO 234 [facility] 7 [place] [address] [email or web address] Historical LMR Provider 03/11/17 Dayton Bruce DO 234 [facility] 7 [place] [address] [email or web address] Insurance Assigned Provider 08/29/23 documented as of this encounter Additional Source Comments The information contained in this document represents components of the legal health record. It is not the complete legal health record.[facility]
--- OUTSIDE RECORDS SUMMARY | 2025-03-31 06:50 | XMS_ITS | Clinical Summary ---
Author Organization Formerly [facility] Address [address] [address] Phone Care Team Providers Care Nipple 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 Name Role Phone Dayton Bruce DO Unavailable Dayton Bruce DO Primary Care Provider Dayton Bruec DO Unavailable Allergies Active Allergy Reactions Criticality Noted Date Comments Sulfamethoxazole-Trim ethoprim Other (See Comments) 06/17/2023 Does not recall, told her never to take again Sesame Anaphylaxis,Hives High 03/04/2021 Sulfites Anaphylaxis,Hives High 03/04/2021 Medications apremilast (OTEZLA) 30 mg tablet Take 60 mg by mouth 2 (two) times a day. Active EPINEPHrine (EPIPEN 2-ALEXA) 0.3 mg/0.3 mL auto-injectorIndi cations:Allergy, subsequent encounter Inject 0.3 mL (0.3 mg total) into the muscle as needed for anaphylaxis. 2 each 1 024 Active albuterol 2.5 mg /3 mL (0.083 %) nebulizer solutionIndicatio ns:Moderate persistent asthma with exacerbation Take 3 mL (2.5 mg total) by nebulization every 6 (six) hours as needed. 30 mL 3 024 Active triamcinolone acetonide 0.05 % Oint 023 Active albuterol 90 mcg/actuation inhalerIndication s:Moderate persistent asthma with exacerbation Inhale 2 puffs into the lungs every 6 (six) hours as needed for wheezing. 18 g 3 Active fluticasone propion-salmetero L (ADVAIR DISKUS) 500-50 mcg/dose DISKUSIndications :Moderate persistent asthma with exacerbation Inhale 1 puff into the lungs 2 (two) times a day. 1 each 3 Active traZODone (DESYREL) 150 MG tabletIndications :Psychophysiologi jose de jesus insomnia TAKE 1 TABLET BY MOUTH NIGHTLY AT BEDTIME. 90 tablet 3 Active fluvoxaMINE (LUVOX) 100 MG tabletIndications :Recurrent major depressive disorder, in partial remission Take 1.5 tablets (150 mg total) by mouth nightly at bedtime. 45 tablet 5 025 2024 Active predniSONE (DELTASONE) 20 MG tabletIndications :Eczema, unspecified type 2 tabs daily x 3 days, 1.5 tabs daily x 3 days, 1 tab daily x 3 days, 0.5 tab daily x 3 days 15 tablet 025 Active clobetasol (TEMOVATE) 0.05 % ointment APPLY TO PSORIASIS ON FEET TWICE A DAY Active SUMAtriptan (IMITREX) 100 MG tabletIndications :Migraine without aura and without status migrainosus, not intractable Take 1 tablet (100 mg total) by mouth once as needed for migraine. Can repeat dose in 2 hours if needed. Do not exceed 2 doses in a 24 hour period. Max dose 200mg/ day 10 tablet 2 Active levothyroxine (SYNTHROID,LEVOTH ROID) 25 MCG tabletIndications :Acquired hypothyroidism Take 1 tablet (25 mcg total) by mouth every morning. 90 tablet 3 025 Active loratadine (CLARITIN) 10 mg tabletIndications :Other seasonal allergic rhinitis TAKE 1 TABLET BY MOUTH EVERY DAY 90 tablet 3 025 Active lamoTRIgine (LAMICTAL) 25 MG IMMEDIATE release tablet Take one tablet by mouth at bedtime (25 mg) x 14 days, if no rash and tolerating well, increase to two tablets by mouth (50 mg) at bedtime. 60 tablet 025 Active loratadine (CLARITIN) 10 mg tablet Take 1 tablet by mouth every morning. 025 2024 Discontinued buPROPion (WELLBUTRIN SR) 150 MG SR 12 hr tabletIndications :Current moderate episode of major depressive disorder without prior episode Take 1 tablet (150 mg total) by mouth 2 (two) times a day. 180 tablet 3 025 2024 Discontinued Active Problems Problem Noted Date Diagnosed Date Vitamin D deficiency, unspecified 02/03/2025 Assessment & Plan (02/03/2025 1:48 PM EDT): Petra is due for vitamin D check-her last vitamin D level was low. I will update her with the result. Seasonal allergies 02/03/2024 Assessment & Plan (02/03/2024 2:16 PM EDT): Petra has seasonal allergies- I wrote for Claritin. Encounter for completion of form with patient Assessment & Plan (08/12/2023 2:25 PM EDT): I filled out paperwork for her-she had to cancel her trip last month secondary to pneumonia. She was appreciative that I took the time to do this. I we will scanned this form into her chart. Chronic pain of both ankles 02/11/2023 Assessment & Plan (02/11/2023 3:33 PM EDT): Petra has pain in her ankles bilaterally-I suspect arthritis and I want to confirm with x-rays thus I ordered this today. 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 She will call if there are any other issues or [id number]-ed in 6 months. She understands and agrees. Psychophysiological insomnia 02/11/2023 Assessment & Plan (02/11/2023 3:32 PM EDT): Petra has insomnia-I refilled her trazodone as her previous medication is out of date. She was appreciative. Age-related cataract of both eyes 11/10/2022 Assessment & Plan (11/10/2022 2:00 PM EDT): Petra presents for preop visit at the request of Dr. Gimenez for cataract surgery to her right eye on 11/26/2022 and the left eye will be done in december. I reviewed her medical records today and I cleared at a low cardiovascular risk for this procedure based on the visit in the office today. I will fax this out to Dr. Gimenez-along with the preop form. Please call if there are any questions or concerns. Preop examination 11/10/2022 Assessment & Plan (11/10/2022 2:01 PM EDT): Petra presents for preop visit at the request of Dr. Gimenez for cataract surgery to her right eye on 11/26/2022 and the left eye will be done in december. I cleared her at low cardiovascular risk today. Encounter for routine laboratory testing 023 Assessment & Plan (11/10/2022 2:01 PM EDT): Petra is due for lab work prior to her next physical in 3 months. I ordered these today and she will get this done. Cervical radiculopathy 10/15/2022 Assessment & Plan (10/15/2022 12:50 PM EDT): Petra presents for neck pains with pain rating down the arms-right side worse than left. I suspect that this is a cervical radiculopathy and I treated her with prednisone-to be taken in the morning and Flexeril-to be taken at night-side effects discussed with these medications. I wrote for some exercises to start on and I also wrote for physical therapy referral. I want her to get the x-ray done of the cervical spine I will update her with the results-rule out any bony abnormalities. If this does not improve she will call and let me know. Follow-up as needed. Current moderate episode of major depressive disorder without prior episode 09/09/2022 Assessment & Plan (02/03/2025 1:52 PM EDT): Petra has depression-I refilled her Wellbutrin today as she stopped this for couple weeks. I also referred her to psychiatry at [facility]-she will call if there are any other issues or concerns. She understands and agrees. I have maintained a long-term relationship with the patient, overseeing the care of their depression. This has significantly influenced my decision-making and treatment plans during today's encounter. Assessment & Plan (11/14/2024 2:01 PM EDT): Petra is more depressed recently secondary to the fact that her sister last month. She is taking her Wellbutrin as directed. I increased her luvox today-she will call if there is any side effects. Follow-up in January for CPE. She understands and agrees with this plan of action. I have maintained a long-term relationship with the patient, overseeing the care of their depression. This has significantly influenced my decision-making and treatment plans during today's encounter. Assessment & Plan (08/12/2023 2:25 PM EDT): Petra is taking her Wellbutrin-this is helping her depression. Follow-up in 3 months for her Medicare wellness. She understands and agrees. Assessment & Plan (09/09/2022 12:33 PM EDT): Stable on her [id number]-pl as needed. Moderate persistent asthma with exacerbation Assessment & Plan (11/14/2024 1:46 PM EDT): Stable while using her inhalers-she has refills at home. Assessment & Plan (02/03/2024 2:23 PM EDT): Petra has asthma- I gave guidance regarding her inhalers- to be used as directed. Assessment & Plan (12/02/2023 1:48 PM EDT): Petra presents for a follow-up regarding an asthma exacerbation. She is finishing up her prednisone and is using her inhaler and nebulizer as directed. Her symptoms have improved and I am pleased about this. I advised her to continue with the steroid-based inhaler. I reviewed her x-ray from last month-reassuring. I informed her to call if there are any other issues or concerns. She understands and agrees. Assessment & Plan (11/25/2023 9:33 AM EDT): I diagnosed Petra with a moderate asthma exacerbation-continued. I changed her maintenance inhaler to high-dose Advair and I sent this to her pharmacy today. She is to continue with her oral prednisone and to continue with her rescue inhaler as directed. I advised her to stay in the air air conditioning and to minimize her activity outside. I informed her to call if her symptoms get worse-she has an appoint with me next week already scheduled and I advised her to keep this appointment. Informed her to call if there are any other issues or concerns. She understands and agrees. Assessment & Plan (09/09/2022 12:33 PM EDT): Petra was diagnosed with a moderate persistent asthma exacerbation and I treated her appropriately with a azithromycin to take as directed, prednisone taper-this was discussed in the office on how to take as well as the possible side effects, as well as an Advair inhaler-to be taken as directed and to rinse her mouth out with a salt water rinse after each use to prevent thrush. I informed her to call if things get worse or if there are any other issues or concerns. She understands and agrees. Need for prophylactic vaccin ation against Streptococcus pneumoniae (pneumococcus) 07/24/2021 Assessment & Plan (07/24/2021 4:10 PM EST): Petra is due for a Pneumo 23 vaccine today she is in agreement with this-this was done in the office today without any complications. Medicare annual wellness visit, subsequent 07/24 Assessment & Plan (02/03/2025 1:50 PM EDT): Petra Montelongo is a 69 y.o. year old female presenting for her annual medicare wellness exam. I reviewed the adult health questionnaire -electronically filled out-today. she will go for her above lab work and I will update her with the results. I reviewed her diet and exercise regimen. she will follow up in a year for their annual medicare wellness exam. she understand and agrees. Assessment & Plan (07/24/2021 4:11 PM EST): Petra Montelongo is a 66 y.o. year old female presenting for her annual medicare wellness exam. I reviewed the adult health questionnaire today. I reviewed her most recent lab work in the office today-stable. she has a healthy diet and I advised her to improve her exercise regimen. she will follow up in a year for their annual medicare wellness exam. she understand and agrees. Hives 06/07/2021 Assessment & Plan (06/07/2021 2:44 PM EST): Petra has hives for which she is taking prednisone and I refilled this today. She will follow-up with her rocket motor mechanic as directed. I advised for lotion to the skin as well as taking Benadryl as needed. She will call if there is any other issues or concerns. She understands and agrees. Close exposure to COVID-19 virus 06/07/2021 Assessment & Plan (06/07/2021 2:44 PM EST): Petra had a close exposure to someone with COVID yesterday. She was swabbed today and I will update her with the results. She will call if she becomes symptomatic. I did advise her to repeat testing next week. She will call if there is any other issues or concerns. She understands and agrees. Accidental fall 05/02/2021 Assessment & Plan (05/02/2021 3:33 PM EST): Petra had an axonal fall a day after . She did not lose consciousness. I diagnosed her with a tight muscle in the lumbar/thoracic spine and I gave her Flexeril-to be taken as directed-guidance given. I gave her exercises as well and advised her to stay well-hydrated. She will call if there is any other issues or concerns. She understands and agrees. Acute left-sided thoracic back pain 05/02/2021 Assessment & Plan (05/02/2021 3:33 PM EST): Petra presents for left lower back pain status post a fall down steps after which has gotten worse since then. I do not believe she has a fracture but there is tight muscles noted thus I gave her some Flexeril-guidance given. I also gave her a printout of exercises to start on at home. She will call if there is any other issues or concerns. She understands and agrees. Need for hepatitis C screening test 03/06/2021 Assessment & Plan (03/06/2021 2:33 PM EDT): Petra is due for hep C screen and she will get this done-I will update her with the results. She understands and agrees. Angioedema 03/06/2021 Assessment & Plan (03/06/2021 2:25 PM EDT): Petra has had issues with angioedema in the past- she is followed by her rocket motor mechanic. Screening for condition 03/06/2021 Assessment & Plan (11/14/2024 1:48 PM EDT): Petra is due for a mammogram in December. Assessment & Plan (12/02/2023 1:48 PM EDT): Petra will go for blood work today-I will update her with the result. She was appreciative. Assessment & Plan (08/12/2023 2:25 PM EDT): Perta is due for colonoscopy-I ordered this today and she will get a phone call for this. Assessment & Plan (03/06/2021 2:34 PM EDT): Petra is due for labs and she will get these done-I will update her with the results. She understands and agrees. Need for prophylactic vaccin ation and inoculation against influenza 03/06/2021 Assessment & Plan (02/03/2025 1:51 PM EDT): Petra is due for a flu vaccine. She was in agreement with getting this done today in the office. This was given today in the office. No complications. She was appreciative. Assessment & Plan (02/03/2024 2:25 PM EDT): Petra would like a flu vaccine today- no complications. She was appreciative. Assessment & Plan (02/11/2023 3:34 PM EDT): Petra is due for a flu shot today-this was given in the office-no complications. She was appreciative. Assessment & Plan (03/06/2021 2:34 PM EDT): Petra is due for a flu shot-this was done in the office today and she was appreciative. No complications. Migraine without aura and wi thout status migrainosus, not intractable 09/13/2020 Assessment & Plan (10/15/2022 12:50 PM EDT): Petra has migraines and I refilled her Imitrex today-to be taken as directed. She was appreciative. Assessment & Plan (12/26/2020 12:24 PM EDT): A virtual visit was used during the COVID-[address] of an in-person visit. This real-time interactive virtual clinical encounter was conducted using telephone-only technology from clinic or home office. The patient participated in the visit from home/temporary residence or other location as specified below. Consent for virtual care, including informing the patient that insurance will be billed, and that in-person care is available in case of emergencies or as needed otherwise, was discussed at the time of scheduling. Pt participated in visit from home. Petra has bene having less migraines. She attributes this to the amitriptyline. She refilled the Imitrex and she will stay well hydrated. She will call if there is any other issues. She understands and agrees. Assessment & Plan (10/24/2020 2:23 PM EDT): A virtual visit was used during the COVID-[address] of an in-person visit. This real-time interactive virtual clinical encounter was conducted using telephone-only technology from clinic or home office. The patient participated in the visit from home/temporary residence or other location as specified below. Consent for virtual care, including informing the patient that insurance will be billed, and that in-person care is available in case of emergencies or as needed otherwise, was discussed at the time of scheduling. Pt participated in visit from home. Petra continues to have issues with migraines. She is taking amitriptyline-50 mg at night however it is not been too beneficial-no side effects. I increase this to 100 mg at night and I also stop the Fioricet and start her on Imitrex-to be taken as directed for an abortive treatment regarding migraines. Guidance given-she will call if there is any other issues or [id number]-ri in 2 weeks. She understands and agrees. Assessment & Plan (09/13/2020 8:52 AM EDT): Petra was diagnosed with migraines. I wrote a prescription for Fioricet-as an abortive medication and guidance given regarding this medication and how frequently take it. I also started her on amitriptyline to help with decreasing the frequency of migraines-to be taken at night and to also help with depression-this is a twofold medication. To note-I stopped her trazodone. She will call if there is any other issues or concerns. Follow-up in 1 month. She understands and agrees. Current episode of major dep ressive disorder without prior episode 09/13/2020 Assessment & Plan (02/11/2023 3:32 PM EDT): Stable while taking her Wellbutrin-advised her to continue with this. Call if there are any other issues or concerns. Assessment & Plan (04/11/2021 3:52 PM EST): Petra has depression. She is taking her medication as directed, no side effects. I advised her to continue with this. F/U as needed. Assessment & Plan (03/06/2021 2:33 PM EDT): Petra has depression and she would like to restart the Wellbutrin-this worked best for her. I wrote for Wellbutrin today-to be taken as directed. Follow-up in a month. She will call if there is any other issues or concerns. She understands and agrees. Assessment & Plan (09/13/2020 8:51 AM EDT): Petra was diagnosed with depression today. I started her on amitriptyline to be taken at night-guidance given. She will be looking for a psychiatrist as well. Follow-up in 1 month. She will call if there is any other issues or concerns. She understands and agrees. Advice given about COVID-19 virus infection 06/25 Assessment & Plan (07/05/2020 9:08 AM EST): Petra is wondering about the Covid vaccine and if there is any sulfa in it. I informed her that there is not. I did inform her about the 2 office sites that will be given the Covid vaccine through [facility]. I also advised her to log onto the portal to get the information. She will call back if there is any further questions. She understands and agrees. Laboratory examination order ed as part of a routine general medical examination 07/05/2020 Assessment & Plan (07/05/2020 9:08 AM EST): Petra is due for lab work and I enter this today. She will get this done as directed. She understands and agrees. Osteopenia 03/27/2020 Assessment & Plan (07/05/2020 9:07 AM EST): Petra and I reviewed her most recent bone density 03/2020. I advised her to improve exercise - low weight and high repetition. I advised her to take calcium and vit D for this. She will call if there is any other issues. Diarrhea 09/08/2019 Assessment & Plan (09/08/2019 3:25 PM EDT): A virtual visit was used during the COVID-[address] of an in-person visit. This real-time interactive virtual clinical encounter was conducted using telephone-only technology from clinic or home office. Consent for virtual care, including informing the patient that insurance will be billed, and that in- person care is available in case of emergencies or as needed otherwise, was discussed at the time of scheduling. I called Petra back and we spent 10 minutes on the phone. She is complaining of nausea, vomiting and diarrhea for the past couple of days. At the start of this she had migraines and she still has headaches occasionally. I informed her that this sounds like a viral illness at this point. She denies any issues with chest pain, shortness of breath or issues with breathing thus I have a lower suspicion for coronavirus. I did inform her if she develops any of the symptoms to call and I will get her screened at the respiratory illness clinic. I advised her to stay at home and to treat with symptomatic management. She will try to isolate herself. She will call if anything else changes or gets worse. She understands and agrees. Routine medical exam 07/20/2019 Assessment & Plan (02/03/2024 2:12 PM EDT): Petra Montelongo is a 68 y.o. year old female presenting for her annual physical exam. I reviewed the adult health update-electronic questionnaire. she will go for her above lab work and I will update her with the results. she has a healthy diet and exercise regimen. she will follow up in a year for their annual physical exam. she understands and agrees. Assessment & Plan (02/11/2023 3:33 PM EDT): Petra Montelongo is a 67 y.o. year old female presenting for her annual physical exam. I reviewed the adult health update-electronic questionnaire. she will go for her above lab work and I will update her with the results. she has a healthy diet and we will increase her exercise regimen once her ankles improve. she will follow up in a year for their annual physical exam. she understands and agrees. Assessment & Plan (07/20/2019 11:43 AM EST): Petra Montelongo is a 64 y.o. year old female presenting for her annual physical exam. I reviewed the adult health update form today. she will go for her above lab work and I will update her with the results. she has a healthy diet and exercise regimen. she will follow up in a year for their annual physical exam. she understand and agrees. Sleep disturbance 07/20/2019 Assessment & Plan (04/11/2021 4:07 PM EST): Petra has issues with sleep. I wrote for a sleep study- I will update her with the results. Assessment & Plan (12/26/2020 12:24 PM EDT): Petra continues to have some issues with sleep. She went down to 100 mg in the amitriptyline at night and I advised her to increase this to 75 mg at night. This medication was sent to her pharmacy. She will call if there is any side effects. She understands and agrees. Assessment & Plan (10/24/2020 2:23 PM EDT): Petra continues to have issues with sleep. Increase the amitriptyline from 50 mg at night to 100 mg at night. Follow-up in 2 weeks. She will call if there is any other issues or concerns. She understands and agrees. Assessment & Plan (07/05/2020 9:06 AM EST): Petra continues to have issues with sleep. She is looking to get her trazodone refilled today. I reviewed her history and I informed her that I will take over prescribing from her psychiatrist. Medication sent to her pharmacy today. She will call if there is any other issues or concerns with this. She understands and agrees. Assessment & Plan (07/20/2019 11:46 AM EST): Petra has issues with sleep. She was referred to sleep study for an eval. Other fatigue 04/29/2019 Assessment & Plan (04/29/2019 3:16 PM EST): Petra has fatigue and this has been going on for a year. I will be checking the above labs. I will update her with the results. She will F/U in 2 months for a CPE. She understands and agrees. Special screening for malignant neoplasm of colo n 12/17/2017 Assessment & Plan (12/17/2017 3:17 PM EDT): Petra will be due for another colonoscopy screen and she was given a referral today. Allergic reaction to food 06/23/2017 Assessment & Plan (06/23/2017 2:47 PM EST): Petra had an allergy attack this past Thursday. She took her OTC medication and some prednisone. She has jeniffer epi pen but she did not use this. She sees her rocket motor mechanic and she informed him of the event. She was given guidance today in the office. She was given a script for prednisone to take if this happens again. She will go to the ED if this does not improve-guidance given. Allergic rhinitis 04/03/2017 Depression 04/03/2017 Assessment & Plan (11/14/2024 1:59 PM EDT): Please see plan current moderate episode of major depression for further detail. Assessment & Plan (06/07/2021 2:44 PM EST): Petra is taking her Wellbutrin as directed and this is helpful. Assessment & Plan (12/26/2020 12:24 PM EDT): Petra has depression. I am increasing her amitriptyline from 50 mg at night to 75 mg at night. I also advised her to see a therapist and gave her options. She will call if there is any other issues or concerns. She understands and agrees. Assessment & Plan (10/24/2020 2:24 PM EDT): Petra continues to have issues with depression. I increase the amitriptyline from 50 mg to 100 mg at night. Follow-up in 2 weeks. She will call if there is any other issues or concerns. She understands and agrees. Assessment & Plan (07/05/2020 9:07 AM EST): Petra has depression as well as some OCD tendencies. I took over prescribing for her Luvox. She denies any side effects. She is currently not seeing a psychiatrist nor is she seeing a therapist but will do so if needed. She denies any SI or HI. Follow-up as needed. She understands and agrees. Assessment & Plan (07/20/2019 11:48 AM EST): Petra has depression, she is taking her medication as directed. She was asking for a name of a new psychologist as her old one retired. I gave her some names. Assessment & Plan (04/29/2019 3:14 PM EST): Petra has depression and she is taking her medication as directed. Eczema 04/03/2017 Assessment & Plan (11/14/2024 2:00 PM EDT): Petra has eczema. She also gets hives at times. She uses prednisone at times. I refilled this today-to be taken as directed. Side effects discussed. She will call if there are any other issues or concerns. She understands and agrees. Assessment & Plan (12/17/2017 3:16 PM EDT): Petra has eczema of her hands and feet. She will go for another round of depo medrol. She will have a total of # 3, 40 mg doses, a week apart. She will then call in the next couple of months to be seen by dermatology as needed. She was also given a refill of the steroid cream to be used as directed. Acquired hypothyroidism 04/03/2017 Assessment & Plan (11/14/2024 1:46 PM EDT): Stable on her levothyroxine 25 mcg a day. Assessment & Plan (02/03/2024 2:16 PM EDT): Stable on her synthroid. Assessment & Plan (06/07/2021 2:32 PM EST): I reviewed her last thyroid labs from yesterday - all normal. Assessment & Plan (04/11/2021 3:53 PM EST): Petra has hypothyroidism. I reviewed her most recent lab work earlier this year-stable. She is taking her medication as directed-no side effects. Assessment & Plan (03/06/2021 2:33 PM EDT): Petra was diagnosed with hypothyroidism today. I started her on Synthroid 25 mcg-to be taken as directed. Follow-up in a month. I will repeat labs in 3 months. She will call if there is any other issues or concerns. She understands and agrees. Assessment & Plan (07/05/2020 9:06 AM EST): Petra has hypothyroidism and she did not get her labs done last year. I will repeat her labs today and I gave her guidance to get them done. She will call if there is any other issues or concerns. She understands and agrees. Assessment & Plan (06/23/2017 2:45 PM EST): Petra has subacute thyroiditis. Mild intermittent asthma, uncomplicated 04/03/20 Assessment & Plan (08/12/2023 2:28 PM EDT): Petra has asthma, her lungs have improved. She is using her inhalers as directed. She will be going for a chest X-ray later this week and I will update her with the results. I have maintained a long-term relationship with the patient, overseeing the care of their asthma. This has significantly influenced my decision-making and treatment plans during today's encounter. Assessment & Plan (07/24/2021 4:09 PM EST): Due for a pneumo 23 vaccine today. Assessment & Plan (07/20/2019 11:49 AM EST): Stable on her medication. Malaise and fatigue 04/03/2017 Assessment & Plan (02/03/2025 1:49 PM EDT): Petra is due for lab work-I will update her with the results. Assessment & Plan (04/03/2017 12:17 PM EST): Petra presents for issues with fatigue. She was advised to go for the above lab work and I will update her with the results. She will call if there is any further issues. She understands and agrees. Overweight 04/03/2017 Assessment & Plan (07/20/2019 11:49 AM EST): Petra is overweight and I advised her to improve her diet and exercise regimen. Assessment & Plan (04/03/2017 12:17 PM EST): Petra is overweight and she was advised to start on a healthier diet and exercise regimen. She will try at this. Resolved Problems Problem Noted Date Diagnosed Date Resolved Date Other pneumonia, unspecified organism 08/12/2023 11/14/2024 Assessment & Plan (08/12/2023 2:12 PM EDT): Improved after antibiotics. She will go for the chest X-ray to make sure the infection has cleared. Rash and other nonspecific skin eruption 11/10/2022 11/14/2024 Assessment & Plan (11/10/2022 2:01 PM EDT): Petra is requesting additional prednisone to take as needed for hives. I wrote for this today-to be taken as directed. She understands and agrees. Asthma exacerbation 04/03/2017 07/20/19 20 Encounters Date Type Department Care Team Description 03/30/2025 1:30 PM EST Telemedicine [address] [place] [address] [facility] Bipolar I disorder in remission (Primary Dx); Grief reaction 03/28/2025 9:00 AM EST Telemedicine [address] [place] [address] [facility] Mood disorder (Primary Dx); Obsessive-compulsive disorder, unspecified type; Grief reaction; Depression, unspecified depression type; Insomnia, unspecified type 03/22/[address] [place] [address] Mary Zapata [facility] Appointment 03/18/2025 Refill [facility] [address] [place] [address] Dayton Bruce, DO Medication Refill 02/03/2025 1:30 PM EDT Office Visit [facility] [address] [place] [address] Dayton Bruce, DO Medicare annual wellness visit, subsequent (Primary Dx); Vitamin D deficiency, unspecified; Malaise and fatigue; Screening for condition; Current moderate episode of major depressive disorder without prior episode; Need for prophylactic vaccination and inoculation against influenza from Last 3 Months Immunizations Immunization Administration Dates Next Due COVID-19 (Pre-03/16) Lexi Vaccine, [id number], PF 08/02/2020 Influenza High-Dose Quadriva lent Preservative Free IM 02/11/2023,03/05/2022,03/06/2021,03/22 Influenza High-Dose Trivalen t Preservative Free IM 02/03/2025,02/03/2024,04/29/2019 Influenza Quadrivalent MDCK w/Preservative IM 06/20/2018 Influenza Quadrivalent Prese rvative Free IM 04/03/2017,05/09/2016 Influenza Quadrivalent w/ Pr eservative IM 02/09/2015,04/26/2014 Influenza, Unspecified Formulation 03/02/2012 Pneumococcal conjugate PCV13 07/20/2019 Pneumococcal polysaccharide PPSV23 07/24/2021 Tdap 10/04/2014 Zoster recombinant 05/01/2023,02/23/2023 Family History Medical History Relation Comments Breast cancer Cousin Relation Status Comments Cousin Alive Social History Tobacco Use Types Packs/Day Years Used Date Smoking Tobacco: Never Smokeless Tobacco: Never Tobacco Cessation:Counseling Given: Not Answered Alcohol Use Standard Drinks/Week Comments Never 0 [...] Industry 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 Not on file Not on file Not on file Last Filed Vital Signs Vital Sign Reading Time Taken Comments Blood Pressure 108/68 02/03/2025 1:18 PM EDT Pulse 88 02/03/2025 1:18 PM EDT Temperature 36.2 C (97.1 F) 02/03/2025 1:18 PM EDT Respiratory Rate 18 12/02/2023 1:17 PM EDT Oxygen Saturation 98% 02/03/2025 1:18 PM EDT Inhaled Oxygen Concentration - - Weight 66.1 kg (145 lb 12.8 oz) 02/03/2025 1:18 PM EDT Height 149.9 cm (4' 11.02 ) 02/03/2025 1:18 PM E DT Body Mass Index 29.43 02/03/2025 1:18 PM EDT Plan of Treatment Upcoming Encounters Date Type Department Care Team (Late st Contact Info) Description 11/28/2024 Procedure Pass [address] [address] 04/26/2025 12:00 PM EST Telemedicine [facility] [address] [place] [id number] Mary Zapata, HNP- [facility], [address] [place] [address] 07/13/2025 3:30 PM EST Appointment [address] [address] Dayton Bruce, [address] [address] 07/28/2025 1:30 PM EST Office Visit [address] [address] Dayton Bruce DO [address] [place] [id number] Health Maintenance Due Date Last Done Comments COLOGUARD 1998 FIT TEST 1998 FOBT 1998 SIGMOIDOSCOPY 1998 VIRTUAL COLONOSCOPY 1998 RSV VACCINE (1 - Risk 50-74 years 1-dose series) 2003 Adult Td,Tdap Booster 10/04/2024 10/04/2014 CREATININE LEVEL 01/02/2025 07/05/2024, 02/2024, 02/27/2023, Additional history exists POTASSIUM LEVEL 01/02/2025 07/05/2024, 11/22, 02/27/2023, Additional history exists MAMMOGRAM 01/07/2025 01/07/2023, 06/2019, 11/30/2017, Additional history exists COVID-19 VACCINE ( season) 2025 03/04/2023, 03/05/2022, 11/27/2021, Additional history exists REPEAT PHQ 04/29/2025 03/30/2025, 03/30/2025 LIPID PANEL 07/05/2025 07/05/2024, 10/2022, 02/27/2023, Additional history exists TSH LEVEL 07/05/2025 07/05/2024, 10/2022, 06/06/2021, Additional history exists DEPRESSION SCREENING 03/30/2026 03/30/2025, 03/30/20 25 PAP SMEAR 06/17/2028 06/17/2023, 04/28/2015 COLONOSCOPY 10/12/2033 10/13/2023, 03/02/2013 COLORECTAL CANCER SCREENING 10/12/2033 OSTEOPOROSIS SCREENING INITIAL (ONE-TIME) Completed 03/26/2020 HEPATITIS C SCREENING Completed 07/18/2021, 022 PNEUMOCOCCAL VACCINES (50+ years) Completed 07/24/2021, 07/20/2019 ZOSTER VACCINES Completed 05/01/2023, 02/23/2023 INFLUENZA VACCINE Completed 02/03/2025, , 02/11/2023, Additional history exists SMOKING STATUS SCREENING (Once After 26 Yrs) Completed 03/30/2025 HEPATITIS A VACCINES Aged Out No long er eligible based on patient's age to complete this topic HIB VACCINES Aged Out No longer eligi ble based on patient's age to complete this topic IPV VACCINES Aged Out No longer eligi ble based on patient's age to complete this topic MENINGOCOCCAL VACCINES (ACWY) Aged Out No longer eligible based on patient's age to complete this topic MENINGOCOCCAL VACCINES (B) Aged Out N o longer eligible based on patient's age to complete this topic Medical Devices Not on file Procedures Procedure Name Priority Date/Time Associated Diagnosis Comments LIPID PANEL Routine 07/05/2024 9:53 AM EST Routine medical exam THYROID STIMULATING HORMONE (TSH) Routine 07/05/2024 9:53 AM EST Acquired hypothyroidism COMPREHENSIVE METABOLIC PANEL (CMP) Routine 07/05/2024 9:53 AM EST Routine medical exam HM COLONOSCOPY FOR RESULT ENTRY ONLY Routine 10/13/2023 12:17 PM EDT PAP TEST Routine 06/17/2023 12:00 AM EST BI MAMMOGRAM SCREENING WITH TOMOSYNTHESIS WITH CAD (BILATERAL) Routine 01/07/2023 1:04 PM EDT Encounter for routine laboratory testing HEPATITIS C ANTIBODY, QUALITATIVE Routine 07/18/2021 12:55 PM EST Need for hepatitis C screening test BD DXA AXIAL (SPINE) WITH HIP Routine 03/26/2020 1:48 PM EST Screening for condition from Last 3 Months or Most Recently Relevant to Health Maintenance Results * (ABNORMAL) Comprehensive metabolic panel (07/05/2024 9:53 AM EST) SODIUM 143 133 - 146 mmol/L [facility] POTASSIUM 4.5 3.3 - 5.1 mmol/L [facility] CHLORIDE 105 96 - 108 mmol/L [facility] CO2 26 21 - 35 mmol/L [facility] BUN 16 6 - 19 mg/dL [facility] CREATININE 0.70 0.5 - 1.5 mg/dL [facility] GLUCOSE 116(H) 70 - 99 mg/dL [facility] ALBUMIN 3.8(L) 3.9 - 4.8 g/dL [facility] TOTAL PROTEIN 7.2 6.5 - 8.0 g/dL [facility] CALCIUM 9.9 8.4 - 10.3 mg/dL [facility] ALKALINE PHOSPHATASE 93 39 - 117 U/L [facility] TOTAL BILIRUBIN 0.3 0.0 - 1.2 mg/dL [facility] AST 15 0 - 37 U/L [facility] ALT 13 0 - 40 U/L [facility] GLOBULIN 3.4 1 - 4.8 g/dL [facility] EGFR 92 >59 mL/min/1.7 3m2 [facility] Comment:Estimated glomerular filtration rate calculated using the CKD-EPI refit equation. ANION GAP 17 10 - 20 mmol/L [facility] Blood 07/05/2024 9:53 AM EST 07/05/2024 10:08 AM EST Dayton Bruce DO LAB BLOOD BKR ORDERABLES Final R esult [address] [address] * TSH (07/05/2024 9:53 AM EST) TSH 3.14 0.27 - 4.20 uIU/mL [facility] Blood 07/05/2024 9:53 AM EST 07/05/2024 10:08 AM EST Dayton Bruce DO LAB BLOOD BKR ORDERABLES Final R Artisan Stateult Performing Organization Address City/[facility] Co de Phone Number [address] [address] * (ABNORMAL) Lipid panel (07/05/2024 9:53 AM EST) HDL 70 mg/dL [facility] Comment: Interpretation <40 mg/dL: Low HDL cholesterol (major risk factor for CHD) Greater than or equal to 60 mg/dL: High HDL cholesterol ( negative risk factor for CHD) HDL - cholesterol is affected by a number of factors, e.g. smoking, excerise, hormones, sex and age. CHOLESTEROL 260(H) 0 - 240 mg/dL [facility] TRIGLYCERIDES 161(H) 30 - 160 mg/dL [facility] LDL 158(H) 50 - 129 mg/dL [facility] Comment: LDL levels in terms of risk for coronary heart disease: <100 mg/dL: Optimal 100-129 mg/dL: Near or above optimal 130-159 mg/dL: Borderline high 160-189 mg/dL: High >190 mg/dL: Very High CARDIAC RISK RATIO 3.7 3.3 - 4.4 [facility] Blood 07/05/2024 9:53 AM EST 07/05/2024 10:08 AM EST Dayton Bruce DO LAB BLOOD BKR ORDERABLES Final R esult [address] [address] * HM COLONOSCOPY FOR RESULT ENTRY ONLY (10/13/2023 12:17 PM EDT) Historical Provider HEALTH MAINTENANCE Edited Result - Final * Pap Test (06/17/2023 12:00 AM EST) Report [address] [address] Bed And Breakfast Operator: Nilsa Braun MD ENVIRONMENTAL SERVICES LEAD Cytology Report FINAL DIAGNOSIS A. PAP SMEAR (SUREPATH) CE: SPECIMEN ADEQUACY: Satisfactory for evaluation; transformation zone present. INTERPRETATION: NEGATIVE FOR INTRAEPITHELIAL LESION OR MALIGNANCY. Atrophy. Electronically Signed Out By: CLARA Rosen(ASCP) The Pap test is a screening test primarily for squamous cancers and precursors and has associated false-negative and false-positive results. New technologies such as liquid-based preparations may decrease but will not eliminate all false-negative results. Regular sampling and follow-up of unexplained clinical signs and symptoms are recommended to minimize false negative results. PROCEDURES/ADDENDA HPV Testing (Requested) Ordered Date: 06/18/2023 A. PAP SMEAR (SUREPATH) CE: Human Papilloma Virus Test NEGATIVE for high-risk Human Papilloma Virus types 16, 18, 45 and the Other high risk probe set (Includes 31, 33, 35, 39, 51, 52, 56, 58, 59, 66, 68) Note: Testing performed by [facility] HR-HPV analysis. Clinical correlation is advised. This HPV test was performed at [facility], [address] [place] [address]. This test has been FDA approved for [facility] cervical cytology specimens. The accuracy and precision of this test for all other specimen sources has been verified in the Cytopathology Laboratory of the [facility] and has not been cleared or approved by the U.S. Food and Drug Administration. Clinical correlation is advised. CLINICAL HISTORY Date of Last Menstrual Period: Not Provided Menstrual History: Post Menopausal Other Clinical Conditions: Screening Pap SPECIMEN SOURCE A: PAP SMEAR (SUREPATH) CE Patient Name: PETRA MONTELONGO : 1955 (Age: 67) Sex: F Institution: [facility] Location: [facility] Date of Collection: 06/17/2023 Date of Reported: 06/23/2023 10:03 Results to: Emily Narayanan MD [facility] Final Diagnosis A. PAP SMEAR (SUREPATH) CE: SPECIMEN ADEQUACY: Satisfactory for evaluation; transformation zone present. INTERPRETATION: NEGATIVE FOR INTRAEPITHELIAL LESION OR MALIGNANCY. Atrophy. [facility] Results\Inter pretation A. PAP SMEAR (SUREPATH) CE: Human Papilloma Virus TestNEGATIVE for high-risk Human Papilloma Virus types 16, 18, 45 and the Other high risk probe set (Includes 31, 33, 35, 39, 51, 52, 56, 58, 59, 66, 68)Note: Testing performed by [facility] HR-HPV analysis. Clinical correlation is advised. This HPV test was performed at [facility], [address] [place] [address]. This test has been FDA approved for [facility] cervical cytology specimens. The accuracy and precision of this test for all other specimen sources has been verified in the Cytopathology Laboratory of the [facility] and has not been cleared or approved by the U.S. Food and Drug Administration. Clinical correlation is advised. [facility] Conversion Type (Conversion Source) 06/17/2023 06/18/2023 9:42 AM EST us Emily Narayanan MD CYTOLOGY ORDERABLES Edited Resul t - Final [facility] [address] [place] [address] * BI MAMMOGRAM SCREENING WITH TOMOSYNTHESIS WITH CAD (BILATERAL) (01/07/2023 1:04 PM EDT) Anatomical Region Laterality Modality Breast Left, Breast Right, Breast Bilateral Bila teral Mammography 01/09/2023 2:39 PM EDT Impressions 01/09/2023 2:41 PM EDT No findings suspicious for malignancy are identified. In the absence of a worrisome palpable abnormality, annual screening mammography is recommended. BI-RADS CATEGORY: 1 - Negative. DENSITY: The breast tissue is almost entirely fat. Narrative 01/09/2023 2:41 PM EDT AVAILABLE COMPARISON: 03/26/2020 through 12/29/2003 Bilateral 3-D tomosynthesis with 2-D reconstructions in the CC and MLO projection. Computer-aided detection system was utilized. No new mass, asymmetry, architectural distortion or suspicious calcifications have become apparent in either breast. Procedure Note Dayton Malik MD - 01/09/2023 AVAILABLE COMPARISON: 03/26/2020 through 12/29/2003 Bilateral 3-D tomosynthesis with 2-D reconstructions in the CC and MLOprojection. Computer-aided detection system was utilized. No new mass, asymmetry, architectural distortion or suspiciouscalcifications have become apparent in either breast. IMPRESSION: No findings suspicious for malignancy are identified. In the absence of aworrisome palpable abnormality, annual screening mammography isrecommended. BI-RADS CATEGORY: 1 - Negative. DENSITY: The breast tissue is almost entirely fat. us Dayton Bruce DO IMG MG EXAMS Final Result * Hepatitis C antibody, qualitative (07/18/2021 12:55 PM EST) HCV NON-REACTIV E NON-REACTI VE [facility] Blood 07/18/2021 12:5 5 PM EST 07/18/2021 1:11 PM EST us Lizette Singleton MOTOR ADJUSTER LAB BLOOD BKR ORDERABLES Raeann cohn Result [address] [address] * BD DXA AXIAL (SPINE) WITH HIP (03/26/2020 1:48 PM EST) Anatomical Region Laterality Modality Bone Density Bone Density 03/26/2020 1:22 PM EST Impressions 03/26/2020 1:35 PM EST Osteopenia with interval decrease in lumbar spine and bilateral hip bone mineral density since 2009 POS - [id number] Narrative 03/26/2020 1:35 PM EST This is a 64-year-old postmenopausal white female with a documented history of osteopenia. She is not on hormone replacement therapy, denies a family history of osteoporosis, and describes a perceived height loss of approximately 1/2 inch. . Evaluation of the lumbar spine and hips was performed and felt to be technically adequate with comparison made to prior studies of 01/08/2005 and 01/02/2010. Total bone mineral density in the L1-L4 vertebral bodies was calculated at 0.793 gm/cm2 with a T-score of -2.3 and Z-score of -0.4, falling within the WHO classification of osteopenia, representing a 13.6% decline since 2009. Total bone mineral density in the right hip was calculated at 0.882 gm/cm2 with a T-score of -0.5 and Z-score of 0.8 falling within the WHO classification of normal, representing an interval decline of 3.9% since 2009. Total bone mineral density in the left hip was calculated at 0.867 gm/cm2 with a T-score of -0.6 and Z-score of 0.7 falling within the WHO classification of normal, representing an interval decline of 3.5% since 2009. Procedure Note Darren Richard MD - 03/26/2020 This is a 64-year-old postmenopausal white female with a documentedhistory of osteopenia. She is not on hormone replacement therapy, denies afamily history of osteoporosis, and describes a perceived height loss ofapproximately 1/2 inch. . Evaluation of the lumbar spine and hips was performed and felt to betechnically adequate with comparison made to prior studies of 01/08/2005and 01/02/2010. Total bone mineral density in the L1-L4 vertebral bodies was calculated at0.793 gm/cm2 with a T-score of -2.3 and Z-score of -0.4, falling withinthe WHO classification of osteopenia, representing a 13.6% decline [id number]. Total bone mineral density in the right hip was calculated at 0.882 gm/ix2gmxd a T-score of -0.5 and Z-score of 0.8 falling within the WHOclassification of normal, representing an interval decline of 3.9% [id number]. Total bone mineral density in the left hip was calculated at 0.867gm/cm2 with a T-score of -0.6 and Z-score of 0.7 falling within the WHOclassification of normal, representing an interval decline of 3.5% [id number]. IMPRESSION: Osteopenia with interval decrease in lumbar spine and bilateral hip bonemineral density since 2009 POS - [id number] Dayton Bruce DO [facility] BONE DENSITY DEXA Final R esult from Last 3 Months or Most Recently Relevant to Health Maintenance Insurance [place] & [place] [id number] [employer] SUPPLEMENT MEDICARE PART A & B [facility] MEDEX SUPPLEMENT MEDICARE PART A & B MEDICARE PART A & B MEDICARE PART A & B [employer] MEDEX SUPPLEMENT MEDICARE PART A & B [employer] MEDEX SUPPLEMENT MEDICARE PART A & B [employer] MEDEX SUPPLEMENT MEDICARE PART A & B MEDICARE PART A & B [employer] MED[employer] SUPPLEMENT Care Teams 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 Relationship Specialty Start Date End Date Sahd, Dayton CamachoDO [address] [facility], [address] [place] [address] [email or web address] PCP - General 05/28/17 Teo Dayton CamachoDO [address] [facility] [address] [place] [address] [email or web address] Historical LMR Provider 03/11/17 Dayton Bruce JaniceDO [address] [facility] [address] [place] [address] [email or web address] Insurance Assigned Provider 08/29/23 Additional Source Comments The information contained in this document represents components of the legal health record. It is not the complete legal health record.Formerly [facility]
--- OUTSIDE RECORDS SUMMARY | 2025-03-31 06:51 | XMS_ITS | Patient Health Record ---
Author Organization [facility] Address [address] [place] [address] Care Team Providers Care Preschool Education Director Name Role Phone DEACON SILVA Primary Care Provider Unavailsandy e Yasmany Ortega Jr Unavailable [phone] Allergies Allergen (clinical drug ingredient) Drug/Non Drug Allergy documented on EMR Reaction Allergy Type Onset Date Status Sulfite and/or sulfite derivative (FN) Sulfites Unknown Drug Allergy Active Sulfa Unknown Drug Allergy Active sesame oil sesame (uncoded) Unknown Allergy Ac tive Reason For Referral No Information Medications Medication SIG (Take, Route, Frequency, Duration) Notes Start Date End Date Status Albuterol Sulfate HFA Active Triamcinolone Acetonide 0.5 % External; Duration: 14 L400,Unavailabl e Active Levothyroxine Sodium 25 MCG Oral; Duration: 90 E039,Unavailabl e Active SUMAtriptan Succinate 100 MG TAKE 1 TABLET BY MOUTH ONCE NEEDED FOR MIGRAINE. CAN REPEAT DOSE IN 2 HOURS IF NEEDED. DO NOT EXCEED 2 DOSES IN A 24 HOUR PERIOD. Oral; Duration: 5 R79133,Unavaila ble Active fluvoxaMINE Maleate 100 MG Oral; Duration: 90 F3341,Unavailab le Active Bupropion & Diet Manage Prod 450mg Active Excedrin Migraine 250-250-65 MG 2 tablets Orally Once a day; Duration: 30 day(s) Active ZyrTEC 10 MG 1 tablet Orally Once a day; Duration: 30 day(s) Active MiraLax (colon prep) 17 GM/SCOOP mixed with Gatorade or Crystal Light Orally begin at 5:00 p.m. 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 anti-inflammat ory drug ([id number] 03) Encounter for long-term (current) use of NSAIDs (Z79.1) Active confirmed Plan Of Treatment Future Test Test Name Order Date COLONOSCOPY 10/29/2012 COLONOSCOPY 07/09/2023 Insurance Providers Payer Name Payer Address Payer Phone Subscriber Number Group Number Insured Name Patient Relationship to Insured Coverage Start Date Coverage End Date MEDICARE OF [place] [address] [place] [address] [id number] AKASH MONTELONGO Self - patient is the insured [employer] CLAIMS [address] [place] [address] [id number] AKASH MONTELONGO Self - patient is the insured Medical (General) History Medical History History ICD Code eczema depression attention deficit disorder OCD Nephrolithiasis Migraines Surgical History Surgery Date(Month/Year) removal of a growth on tonsil cateract surgery
[2025-03-31 07:10] VITALS: BP 111/58; PULSE 68; RESP 17; TEMP 36.6; O2SAT 97
--- NOTE | 2025-03-31 07:15 | PC.NURSE ---
This RN assumed care of patient @ 0700 Patient presents to ED c/o left eye pain, rated 7/10 Patient denies injury, vision changes Sclera white, no redness, no drainage noted VSS and up to date Provider in to see patient Plan of care on going
--- NOTE | 2025-03-31 07:20 | ED.EYEPROB ---
HPI - Eye Problem General Chief complaint: Eye Problems Stated complaint: severe eye pain Time Seen by Provider: 03/31/25 07:19 Source: patient Mode of arrival: ambulatory Limitations: no limitations History of Present Illness ED Provider: Dr. Kevin Wick HPI Narrative: 69-year-old female with a history of migraines, OCD, nephrolithiasis, depression, eczema, bilateral cataract surgery 2 years prior [facility] who presents emergency department for evaluation of headaches and left eye pain. Patient states that she has migraine headaches and has been getting daily headaches for proximally 3 weeks. She describes the headache as a pressure behind her left eye and and sometimes a pressure behind her right eye. She states the headaches are often moderate to severe in intensity but relieved by sumatriptan. She states that these headaches are consistent with a migraine syndrome but it is unusual for her to have 3 weeks of headaches. She states that her left eye feels achy and swollen for the past 3 days. She states that the left eye pain is constant, itchy with a occasional crusty material in the corner of her eye, moderate to severe in intensity. She states she has been using lubricant eyedrops and and I medication that she got for a stye in the past. She did not take any pain medicines prior to coming to the emergency department. Review of systems was negative for fever, chills, rhinorrhea, sore throat, shortness of breath, nausea, vomiting, diarrhea. She states she has a chronic cough. Related Data Home Medications ?Medication ?Instructions ?Recorded ?Confirmed albuterol sulfate 90 mcg/actuation 1 inh inhalation QID PRN Shortness 10/09/23 10/09/23 aerosol inhaler Of Breath Or Wheezing albuterol sulfate 90 mcg/actuation 1 inh inhalation QID PRN Shortness 10/09/23 10/09/23 aerosol inhaler (Ventolin HFA) Of Breath Or Wheezing sdxrhpl-xhhvkqvwmtppl-qmrxzqch 250 2 tab PO Q4-6H PRN Headache 10/09/23 10/09/23 mg-250 mg-65 mg tablet (Excedrin Migraine) bupropion HCl 150 mg tablet,12 hr 150 mg PO BID 10/09/23 10/09/23 sustained-release cetirizine 10 mg tablet (Zyrtec) 10 mg PO DAILY 10/09/23 10/09/23 fluvoxamine 100 mg tablet 100 mg PO BEDTIME 10/09/23 10/09/23 levothyroxine 25 mcg tablet 25 mcg PO DAILY 10/09/23 10/09/23 sumatriptan succinate 100 mg tablet 100 mg PO ONCE PRN Headache 10/09/23 10/09/23 trazodone 150 mg tablet 150 mg PO BEDTIME 10/09/23 10/09/23 triamcinolone acetonide 0.5 % 1 appl topical DAILY 10/09/23 10/09/23 topical ointment Previous Rx's ?Medication ?Instructions ?Recorded erythromycin 5 mg/gram (0.5 %) eye 0.5 inch ophthalmic-Left TID 7 03/31/25 ointment days #3.5 grams metoclopramide HCl 5 mg tablet 5 mg PO Q6H PRN Headache, nausea 03/31/25 (Reglan) or vomiting #14 tabs Allergies Allergy/AdvReac Type Severity Reaction Status Date / Time animal dander (PET DANDER) Allergy Intermediate SNEEZING, Verified 03/31/25 06:14 SWELLING mold (MOLD) Allergy Intermediate SWELLING Verified 03/31/25 06:14 pollen extracts (POLLEN) Allergy Intermediate SWELLING Verified 03/31/25 06:14 sulfite (SULFITE) Allergy Intermediate HIVES Verified 03/31/25 06:14 Sulfa (Sulfonamide Allergy Unknown UNKNOWN Verified 03/31/25 06:14 Antibiotics) (SULFA (SULFONAMIDE ANTIBIOTICS)) DUST Allergy Intermediate SWELLING Uncoded 03/31/25 06:14 Review of Systems Review of Systems: Yes all other systems are reviewed and are negative PMFSH Past Medical History Medical History Migraines Nephrolithiasis OCD (obsessive compulsive disorder) Attention deficit disorder (ADD) Depression Eczema Surgical History Hx of colonoscopy Hx of removal of cyst Hx of cataract extraction Social History Social History Patient Tobacco Use Status: Former Tobacco user Smoked in Last 30 Days: No Use of substances other than those prescribed or required for medical reasons: Yes Substance Use Type: Marijuana Advance Directives: No Advance Directives Information Provided: Yes Physical Exam Vital Signs: Vital Signs: Last Vital Signs Temp 97.8 F 03/31/25 07:10 Pulse 64 03/31/25 10:00 Resp 16 03/31/25 10:00 BP 107/56 L 03/31/25 10:00 Pulse Ox 98 03/31/25 10:00 O2 Del Method Room Air 03/31/25 10:00 BMI result Body Mass Index 29.3 Vital signs were normal Exam: General: Awake, alert in no distress Head: Normocephalic, atraumatic, no tenderness palpation over the temporal regions of her scalp Eye exam: General: Normal sclerae and conjunctiva, no discharge noted, pupils are 2 mm, symmetric, reactive to light, extraocular muscles are intact with no pain with a high movement. Fluorescein dye: Intra-ocular pressures: ENT: Ears appear normal, mouth revealed moist membranes with no erythema or exudates Neck: Supple, no adenopathy Lung: breath sounds symmetric, no wheezing, no rales and no rhonchi Chest: symmetric movement, nontender Heart: regular rate and rhythm, normal S1, S2 no murmurs or rubs Abdomen: soft, non-tender, nondistended, normal bowel sounds Back: no vertebral tenderness, no CVAT Extremities: no deformities, moves all extremities symmetrically, no edema Neuro: General: ?Awake, alert, oriented, normal speech Cranial nerves: ?Cranial nerves 2-12 ?intact Strength: ?Moves all extremities symmetrically, strength 5/5 Cerebellar: ?Good zlawdf-hp-rppx-to-finger, good rapid finger movement, normal heel to grayson Psych: Pleasant, cooperative Medications Administered Discontinued Medications Generic Name Dose Route Start Last Admin Trade Name Keysha PRN Reason Stop Dose Admin Fluorescein Sodium 1 strip 03/31/25 07:20 03/31/25 07:51 Fluorescein Sodium Strip EYE-LEFT 03/31/25 07:21 1 strip ONCE ONE Administration Ibuprofen 400 mg 03/31/25 07:35 03/31/25 07:50 Ibuprofen 400 Mg Tablet PO 03/31/25 07:36 400 mg ONCE STA Administration Tetracaine HCl 1 drop 03/31/25 07:20 03/31/25 07:51 Tetracaine Hcl/Pf 0.5% Oph Carine 4 Ml Drops EYE-LEFT 03/31/25 07:21 1 drop ONCE ONE Administration Medical Decision Making Medical Decision Making [facility] Narrative: 69-year-old female with a history of migraines, OCD, nephrolithiasis, depression, eczema, bilateral cataract surgery 2 years prior [facility] [place] [facility] who presents emergency department for evaluation of headaches and left eye pain. Patient states that she has migraine headaches and has been getting daily headaches for proximally 3 weeks. She describes the headache as a pressure behind her left eye and and sometimes a pressure behind her right eye. She states the headaches are often moderate to severe in intensity but relieved by sumatriptan. She states that these headaches are consistent with a migraine syndrome but it is unusual for her to have 3 weeks of headaches. She states that her left eye feels achy and swollen for the past 3 days. She states that the left eye pain is constant, itchy with a occasional crusty material in the corner of her eye, moderate to severe in intensity. She states she has been using lubricant eyedrops and and I medication that she got for a stye in the past. She did not take any pain medicines prior to coming to the emergency department. Vital signs were normal. Exam including neurologic exam was unremarkable. Differential diagnosis: ?Includes but is not limited to intra-ocular migraine, migraine syndrome, intracranial bleed, mass effect, giant cell arteritis, corneal abrasion, acute glaucoma, conjunctivitis, iritis, anemia, electrolyte abnormalities Course: 09:38 I ordered a laboratory evaluation to include ESR and CRP. We will obtain a CT scan to rule out intracranial cause for her persistent headaches over the last 2-3 weeks. 11:48 My independent interpretation patient's laboratory evaluation as follows: CBC was normal. Chloride elevated 110. BUN elevated 17 with a normal creatinine. Glucose elevated 121.-no significant abnormalities. ESR is elevated 28 with a normal CRP of 35-giant cell arteritis is very unlikely in his normal values. CT scan of the brain revealed no acute abnormalities which is reassuring. Patient's fluorescein dye stain revealed no uptake in the left cornea. Patient did get relief for pain after instilling tetracaine drops in her left eye suggesting that she may have according to the abrasion. Patient's visual acuity in each eye was 20/20. Intra-ocular pressure right eye was 13.2 and left eye was 10.2 which is normal. Given these findings, I think that the patient's headaches are consistent with a migraine syndrome . The has left eye pain is most likely caused by a superficial corneal abrasion. Patient did receive Motrin 400 mg orally here in the emergency department with improvement of her pain. Patient will be treated with migraine cocktail at home consisting of Reglan 5 mg, Benadryl 25 mg and Excedrin migraine 2 tablets every 6 hours as needed for headache. Patient may have a superficial corneal abrasion versus a stye, she was started on erythromycin ointment 3 times a day for 7 days. The patient is allergic to oral erythromycin which causes stomach pain and I do not think that she will get this reaction using the topical ointment. Patient was advised to contact her nurse monitoring for re-evaluation. She was given printed and verbal instructions and discharged home. Differential Diagnosis Differential Diagnoses: The differential diagnosis associated with the presentation includes (See above) Admission/Observation Consideration of admission/observation: Escalation of care including admission/observation considered (Yes) Lab Data MDM Lab Attestation statement: I reviewed the patient's lab results. 03/31/25 08:00 03/31/25 08:00 Labs: Lab Results 03/31/25 Range/Units 08:00 WBC 8.5 (4.8-10.8) X10*3/uL RBC 4.73 (4.20-5.50) X10*6/uL Hgb 14.3 (12.0-16.0) g/dl Hct 43.3 (37.0-47.0) % MCV 91.5 (80.0-98.0) fL MCH 30.2 (27.0-33.0) pg MCHC 33.0 (31.0-35.0) g/dl RDW 13.2 (11.0-16.0) % Plt Count 342 (160-400) X10*3/uL MPV 8.9 L (9.4-12.3) fL Immature Gran % (Auto) 0.5 H (0.0-0.4) % Neut % (Auto) 64.9 (45-73) % Lymph % (Auto) 26.1 (20-40) % [place] % (Auto) 6.8 (2-11) % Eos % (Auto) 1.2 (0-4) % Baso % (Auto) 0.5 (0-2) % Lymph # (Auto) 2.2 (1.2-4.9) X10*3/uL [place] # (Auto) 0.6 (0.1-1.2) X10*3/uL Eos # (Auto) 0.1 (0.0-0.4) X10*3/uL Baso # (Auto) 0.0 (0.0-0.2) X10*3/uL Abs Immat Gran (auto) 0.04 H (0.00-0.03) X10*3/uL Absolute Neuts (auto) 5.5 (2.0-8.3) x10*3/uL Absolute Nucleated RBC 0.000 (0.0-0.012) X10*3/uL Nucleated RBC % (auto) 0.0 (0.0-0.2) /100WBC ESR 28 H (0-20) MM/HR Sodium 140 (135-145) mmol/L Potassium 4.0 (3.3-5.1) mmol/L Chloride 110 H (96-108) mmol/L Carbon Dioxide 23 (22-29) mmol/L Anion Gap 11 L (12-20) BUN 17 H (9-16) mg/dL Creatinine 0.63 (0.5-1.4) mg/dL Estim Creat Clear Calc 67.5 Estimated GFR > 60 Random Glucose 121 H (60-115) mg/dL Calcium 9.2 (8.4-10.2) mg/dL Total Bilirubin 0.3 (0.0-1.0) mg/dL AST 15 (5-31) U/L ALT 13 (0-31) U/L Alkaline Phosphatase 70 (39-117) U/L C-Reactive Protein 0.35 (< or = 0.50) mg/dL Total Protein 6.8 (6.5-8.0) g/dL Albumin 3.9 (3.5-5.0) g/dL Radiology Impression Discussion of test interpretation with radiology: I have reviewed the radiologist's reading. Radiologist Impression: CT head/brain wo IV con IMPRESSION: No acute intracranial abnormality. There is a circumscribed lesion with peripheral shell of calcification in the superior medial right maxillary sinus that could represent a pseudocyst, retention cyst, pseudocyst, or post-surgical ciliated cyst. Electronically signed by: Miguel Almodovar MD 03/31/2025 09:57 AM EST Prescription Management I considered prescription management with: Antibiotic (Erythromycin ophthalmic ointment) and Other (Anti migraine medication, Reglan) Chronic Conditions Patient?s care impacted by: Other (Chronic migraines) Discharge Plan Discharge Clinical Impression: Headache, migraine, Corneal abrasion, left, Hordeolum externum left upper eyelid Patient Disposition: Home, Self-Care Instructions: Stye (ED), Corneal Abrasion (ED) Additional Instructions: The CT scan of your brain was normal which is reassuring. Your blood work was unremarkable. Your intra-ocular eye pressures were normal (right eye 13.2, left eye 10.2). Your visual acuity was 20/20 in both eyes. Your blood work revealed no significant abnormalities, you had no significant elevation in your inflammatory markers. Continue taking her sumatriptan as prescribed by your provider. For pain not relieved by this medication, take the following 3 medications together every 6 hours as needed for headache, nausea or vomiting. Reglan (metoclopramide) in 5 mg, 1 pill Benadry (diphenhydramine) 25 mg, 1 pills Excedrin migraine (acetaminophen, aspirin, caffeine), 2 pills. After you take these medications, lie down in a dark quiet room and try to fall asleep. ?These medications will make you sleepy, do not drive or work after taking these medications. Follow-up with your doctor in 2 days. Please return to the emergency department if your symptoms get worse or if you develop any symptoms that are concerning to you. You pain in your left eye and may be caused by corneal abrasion or ?you may have a stye of your?upper eyelid. Do the following routine, in the order below, 3 times a day for 1 week 1. Put a small amount of baby shampoo in warm water. ?Dip the Q-tip in the shampoo with water and rub QT along your upper eyelash to clean out the eyelash 2. Pull on your lower eyelash and apply a small amount of erythromycin ointment to your lower eyelid (like your putting tooth paste on a tooth brush) . ?Then blink several to spread the erythromycin around in your eye 3. Put a small amount erythromycin on another Q-tip and rub it into your upper eyelash. 4. Then apply a warm washcloth to your eye for 15 minutes or use a heating pad on low for 15 minute 3 times a day. Follow-up with your doctor in 2 days. Please return to the emergency department if your symptoms get worse or if you develop any symptoms that are concerning to you. Prescriptions: New metoclopramide HCl [Reglan] 5 mg tablet 5 mg PO Q6H PRN (Reason: Headache, nausea or vomiting) Qty: 14 0RF erythromycin 5 mg/gram (0.5 %) ointment 0.5 inch ophthalmic-Left TID 7 Days Qty: 3.5 0RF No Action bupropion HCl 150 mg tablet sustained-release 12 hr 150 mg PO BID cetirizine [Zyrtec] 10 mg Tablet 10 mg PO DAILY Excedrin Migraine 250-250-65 mg Tablet 2 tab PO Q4-6H PRN (Reason: Headache) sumatriptan succinate 100 mg tablet 100 mg PO ONCE PRN (Reason: Headache) triamcinolone acetonide 0.5 % ointment 1 appl topical DAILY levothyroxine 25 mcg tablet 25 mcg PO DAILY fluvoxamine 100 mg tablet 100 mg PO BEDTIME trazodone 150 mg tablet 150 mg PO BEDTIME albuterol sulfate 90 mcg/actuation Hfa Aerosol Inhaler 1 inh INHALATION QID PRN (Reason: Shortness Of Breath Or Wheezing) albuterol sulfate [Ventolin HFA] 90 mcg/actuation Hfa Aerosol Inhaler 1 inh INHALATION QID PRN (Reason: Shortness Of Breath Or Wheezing) Print Language: Belarusian
[2025-03-31] MEDS: Fluorescein Sodium STRIP 1 STRIP EYE-LEFT (07:51)
[2025-03-31] MEDS: Tetracaine HCl/PF 0.5% Oph Sol 4 ML DROPS 1 DROP EYE-LEFT (07:51)
[2025-03-31 08:16] LABS: MANUAL DIFF FLAG NO
[2025-03-31 08:18] LABS: Hematocrit 43.3 % (37.0-47.0); Hemoglobin 14.3 g/dl (12.0-16.0); Imm Gran Abs Auto 0.04 X10*3/uL (0.00-0.03); Imm Gran Pct Auto 0.5 % (0.0-0.4); Lymphocytes Absolute Auto 2.2 X10*3/uL (1.2-4.9); Mean Corpuscular HGB Conc 33.0 g/dl (31.0-35.0); Mean Corpuscular Hemoglobin 30.2 pg (27.0-33.0); Mean Corpuscular Volume 91.5 fL (80.0-98.0); NRBC Abs Auto 0.000 X10*3/uL (0.0-0.012); NRBC Pct Auto 0.0 /100WBC (0.0-0.2); Platelet Count 342 X10*3/uL (160-400); Red Blood Count 4.73 X10*6/uL (4.20-5.50); White Blood Count 8.5 X10*3/uL (4.8-10.8)
[2025-03-31 08:33] LABS: Alanine Aminotransferase 13 U/L (0-31); Albumin Level 3.9 g/dL (3.5-5.0); Alkaline Phosphatase 70 U/L (39-117); Anion Gap 11 (12-20); Aspartate Amino Transferase 15 U/L (5-31); Blood Urea Nitrogen 17 mg/dL (9-16); Calcium 9.2 mg/dL (8.4-10.2); Carbon Dioxide 23 mmol/L (22-29); Chloride 110 mmol/L (96-108); Creatinine Clr Calc Pharmacy 67.5; Estimated Glomerular Filt Rate > 60; Potassium 4.0 mmol/L (3.3-5.1); Sodium 140 mmol/L (135-145); Total Protein 6.8 g/dL (6.5-8.0)
[2025-03-31 09:29] LABS: Erythrocyte Sedimentation Rate 28 MM/HR (0-20)
[2025-03-31 10:00] VITALS: BP 107/56; PULSE 64; RESP 16; O2SAT 98
[2025-03-31 12:28] VITALS: BP 111/69; PULSE 69; RESP 16; TEMP 36.6; O2SAT 98
[2025-03-31 12:29] VITALS: BP 111/69; PULSE 69; RESP 16; TEMP 36.6; O2SAT 98
== END 2025-03-31 12:45 | disposition home or self-care (01) ==
PROVIDERS: Emergency Provider Emergency Medicine Emergency Medical Services; PCP Family Medicine
DX: G43.909 Migraine, unspecified, not intractable, without status migrainosus (principal); H00.014 Hordeolum externum left upper eyelid; S05.02XA Injury of conjunctiva and corneal abrasion without foreign body, left eye, initial encounter; X58.XXXA Exposure to other specified factors, initial encounter; Y93.9 Activity, unspecified; Y92.9 Unspecified place or not applicable; Y99.8 Other external cause status
CPT/HCPCS: 36415; 70450; 80053; 85025; 85652; 86140; 99284

== ENCOUNTER → 2025-03-31 07:35 | Outpatient (BNV) | payer MEDICARE, SELFPAY | PROVIDERS: Emergency Provider Emergency Medicine Emergency Medical Services; PCP Family Medicine; Visit Provider Radiology Diagnostic Radiology | DX: J34.89 Other specified disorders of nose and nasal sinuses (principal) | CPT/HCPCS: 70450 ==